=== PATIENT | male | born 1960 | race Caucasian/White ===

== ENCOUNTER 2017-08-14 15:22 | Emergency (ER) | payer OTHER ==
[2017-08-14 15:45] VITALS: BP 131/91
--- NOTE | 2017-08-14 16:13 | UC ---
Kar Payan Julia, scribed for Ryan Worthington MD on 08/14/17 at 1557 . Bite Injury/Animal HPI - HPI Summary HPI Summary: This patient is a 57 year old M presenting to [facility] with a chief complaint of a Bulls Eye rash to his right forearm. Patient noticed and removed a tick on . However he doesn't remember how long the tick has been there. Bulls eye rash still persists. Patient denies fever and chills. Etoh use daily. - History of Current Complaint Chief Complaint: UCSkin Stated Complaint: TICK BITE Time Seen by Provider: 08/14/17 15:49 Hx Obtained From: Patient Pain Intensity: 0 Onset/Duration: Other - unknown, first noticed 08/12/17 Type of Bite: Wild Animal - tick Aggravating Factor(s): Nothing Alleviating Factor(s): Nothing Associated Signs And Symptoms: Positive: Negative - Allergies/Home Medications Allergies/Adverse Reactions: Allergies Allergy/AdvReac Type Severity Reaction Status Date / Time iodine Allergy unk Verified 08/14/17 15:45 shellfish derived Allergy unk Verified 08/14/17 15:45 PMH/Surg Hx/FS Hx/Imm Hx Cancer History: Other Other Cancer History: testicular cancer - Surgical History Surgical History: Yes Surgery Procedure, Year, and Place: treatment for testicular CA - Family History Known Family History: Negative: Cardiac Disease - Social History Alcohol Use: Daily Substance Use Type: None Smoking Status (MU): Heavy Every Day Tobacco Smoker Type: Cigarettes Review of Systems Constitutional: Negative Skin: Rash All Other Systems Reviewed And Are Negative: Yes Physical Exam - Summary Physical Exam Summary: VITAL SIGNS: Reviewed. GENERAL: Patient is a well-developed and nourished male who is lying comfortable in the stretcher. Patient is not in any acute respiratory distress. HEAD AND FACE: Normocephalic EYES: PERRLA, EOMI x 2. EARS: Hearing grossly intact. MOUTH: Oropharynx within normal limits. NECK: Supple, trachea is midline, no adenopathy, no JVD, no carotid bruit. CHEST: Symmetric, no tenderness at palpation LUNGS: Clear to auscultation bilaterally. No wheezing or crackles. CVS: Regular rate and rhythm, S1 and S2 present, no murmurs or gallops appreciated. ABDOMEN: Soft, non-tender. Bowel sounds are normal. No abdominal abnormal pulsations. EXTREMITIES: Full ROM in all major joints, no edema, no cyanosis or clubbing. NEURO: Alert and oriented x 3. No acute neurological deficits. Speech is normal and follows commands. SKIN: Dry and warm, bulls eye rash to right forearm Triage Information Reviewed: Yes Vital Signs: Initial Vital Signs Temp 98.3 F 08/14/17 15:42 Pulse 93 08/14/17 15:42 Resp 18 08/14/17 15:42 BP 131/91 08/14/17 15:42 Pulse Ox 99 08/14/17 15:42 Vital Signs Reviewed: Yes Bite Injury Course/Dx - Course Course Of Treatment: Patient presents to the urgent care with a chief complaint of having a rash in the right peg. He reports that he removed the tick last Saturday however he doesn't know for how long the tick was present. Today he has a bulls eye rash with central clearing. Therefore decided to give the treatment for this patient. He has no other complaints. He was recommended to the ER if the symptoms worsen. CONCERNS WERE ADDRESSED AND HE HAS NO COMPLAINTS. - Differential Dx/Diagnosis Provider Diagnoses: Tick bite Discharge - Sign-Out/Discharge Documenting (check all that apply): Discharge/Admit/Transfer - Discharge Plan Condition: Stable Disposition: HOME Prescriptions: DOXYcycline CAP(*) [DOXYcycline 100MG CAP(*)] 100 mg PO BID #28 cap Patient Education Materials: Tick Bite (ED) Referrals: Jamel Garces MD [Primary Care Provider] - Additional Instructions: Take medications as instructed Increase your fluid intake Return to the UC if symptoms worsen - Billing Disposition and Condition Condition: STABLE Disposition: HOME The documentation as recorded by the Kar bose Julia accurately reflects the service I personally performed and the decisions made by , Ryan Worthington MD.
== END 2017-08-14 16:07 | disposition home or self-care (01) ==
LOC: UCEAST 15:22
DX: S50.861A Insect bite (nonvenomous) of right forearm, initial encounter (principal); W57.XXXA Bitten or stung by nonvenomous insect and other nonvenomous arthropods, initial encounter; Y93.9 Activity, unspecified; Y92.9 Unspecified place or not applicable; R21 Rash and other nonspecific skin eruption; Z85.47 Personal history of malignant neoplasm of testis; F17.210 Nicotine dependence, cigarettes, uncomplicated
CPT/HCPCS: 99212; G0463

== ENCOUNTER → 2018-09-19 08:16 | Day surgery (SDC) | payer OTHER ==
--- NOTE | 2018-09-17 17:59 | HP ---
CC: Dr. Garces; Dr. Isak Sauceda * ADMITTING HISTORY AND PHYSICAL: DATE OF ADMISSION: 09/19/18 ADMITTING DIAGNOSES: 1. Bilateral hydronephrosis. 2. Pelvic malignancy (questionable involvement of bladder by pelvic malignancy) . PLANNED PROCEDURE: Cystoscopy, bladder biopsies, bilateral retrograde and bilateral stent change. SURGEON: Noam Gaytan MD. HISTORY OF PRESENT ILLNESS: Wilman Harper is a 58-year-old gentleman who I saw recently after a gap of several years. He had been evaluated at [facility] for acute renal failure with a creatinine of 10.9 and was noted to have bilateral hydronephrosis. He was transferred to [facility] for urgent bilateral nephrostomy tube insertion and actually underwent insertion of bilateral nephroureteral stents and also then subsequently had a bladder biopsy a few days later, which showed poorly differentiated carcinoma thought to be not of bladder, prostate, or colon origin. He is now being brought in for cystoscopy, bladder biopsies and my plan also is to remove the previously placed nephroureteral stents and to place internal bilateral ureteral stents. PAST MEDICAL HISTORY: Significant for hypertension, gastroesophageal reflux, anxiety. 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 PAST SURGICAL HISTORY: Significant for the recent bladder biopsies and right orchiectomy in 1987. MEDICATIONS ON ADMISSION: 1. Allopurinol 300 mg a day. 2. Amlodipine 5 mg twice a day. 3. Pantoprazole 40 mg daily. 4. Klonopin 0.5 mg p.r.n. up to 3 times a day. ALLERGIES: INTRAVENOUSLY ADMINISTERED IODINE. FAMILY HISTORY: Negative for bladder or prostate cancer. SMOKING HISTORY: He has a 10 to 15 pack year smoking history. REVIEW OF SYSTEMS: He is otherwise in good health. There is no history of diabetes mellitus or any other major systemic illness. He denies any chest pain or shortness of breath. PHYSICAL EXAMINATION GENERAL: Reveals a pleasant middle aged gentleman. VITAL SIGNS: Blood pressure is 120/80, pulse 104 per minute and regular, temperature 97.8, oxygen saturation 98% on room air. LUNGS: Clear bilaterally. CARDIOVASCULAR: Regular rate and rhythm. S1, S2. ABDOMEN: Soft. Bilateral nephrostomy tubes are in place draining clear urine. IMPRESSION AND PLAN: I had a detailed discussion with Mr. Harper regarding the findings of possible metastatic malignancy to the bladder resulting in bilateral hydronephrosis. He will also need to be evaluated by Oncology, possibly with a PET scan to try determine the possible origin of this malignancy and certainly, lung cancer would have to be considered in possible primaries. I will also be talking with Dr. Sauceda to try and arrange the removal of the previously placed nephroureteral stents prior to my bilateral stent insertion. [id number]/[facility] #: [id number] MARIBEL
[~2018-09-19 08:16] MED LIST: Buffered Lidocaine 1% SYRIN* 1 ML/SYRINGE INTRADERM ONE; Fluorescein 10% INJ* 100 MG/ML AMP ONE; Furosemide IV* 10 MG/ML 2 ML VIAL (20 MG) ONE; HYDROmorphone INJ1* 1 MG/ML SYRINGE ONE; Iohexol 180 (CONTRAST) 10 ML SDV IV ONE; Lidocaine 2% PF * 5 ML VIAL ONE; Methylene Blue 0.5 %* 50 MG/10 ML AMP IV ONE; Midazolam* 1 MG/ML 2 ML VIAL (2 MG) ONE; Naloxone* 0.4 MG/ML 1 ML VIAL IV PRN; Ondansetron INJ* 2 MG/ML VIAL IV PRN; Ondansetron INJ* 2 MG/ML VIAL ONE; Oxybutynin TAB* 5 MG ONE; Propofol* 10 MG/ML 20 ML BTL ONE; cefTRIAXone(*) 2 GM ADDV.VIAL IVPB ONE; fentaNYL* 50 MCG/ML 2 ML VIAL (100 MCG VIAL) ONE; oxyCODONE/Acetamin 5/325 MG* TAB ONE
[2018-09-19] MEDS: Lactated Ringers 1000 ML Bag* 1,000 ML IV SCH ×2 (08:59→12:20)
[2018-09-19] MEDS: fentaNYL* 50 MCG/ML 2 ML VIAL (100 MCG VIAL) IV PRN ×5 (11:51→13:19)
[2018-09-19 13:20] VITALS: BP 131/84
[2018-09-19 15:11] LABS: BUN/Creatinine Ratio 8.3 (8-20); EGFR African American 55.6 (>60); EGFR Non-African American 45.9 (>60); Potassium 3.6 mmol/L (3.5-5.0)
--- NOTE | 2018-09-19 21:16 | OP ---
CC: Dr. Garces; Dr. Lorena Hairston; Dr. Noam Gaytan OPERATIVE REPORT: DATE OF OPERATION: 09/19/18 DATE OF : 60 SURGEON: Noam Gaytan MD ANESTHESIOLOGIST: Dr. Sevilla. ANESTHESIA: General. PRE-OP DIAGNOSES: 1. History of bilateral hydronephrosis and acute renal failure. 2. Bladder tumor. POST-OP DIAGNOSES: 1. History of bilateral hydronephrosis and acute renal failure. 2. Bladder tumor. OPERATIVE PROCEDURE: 1. Removal of previously placed bilateral nephroureteral stents. 2. Cystoscopy, bilateral retrograde pyelograms, bilateral ureteral balloon dilatation, and bilateral stent insertion. 3. Transurethral resection and fulguration of bladder lesions (5 to 6 cm aggregate). INDICATIONS: Wilman Harper is a 58-year-old gentleman who had initially been evaluated in the [facility] Emergency Room for a creatinine of almost 11. He was transferred to [facility] for ur gent bilateral nephrostomy tube insertion and underwent insertion of bilateral nephroureteral stents by the interventional radiology service there. He subsequently underwent cystoscopy and bladder biop sies, which revealed poorly differentiated carcinoma of unknown origin. He is now being brought in fo r internalization of the ureteral stents and further resection of the bladder lesion to try and deter mine the etiology of this malignancy. COMPLICATIONS: None. STENTS USED: 8.5-Hebrew 28-cm black silicone stents, right and left ureter. POSTOPERATIVE CONDITION: Stable. OPERATIVE FINDINGS: 1. Posterior bladder wall and floor of bladder involved by probable tumor invading into the bladder from an extrinsic source rather than a primary bladder tumor. 2. Evidence of occlusion of both right and left ureter in the distal ureter. DESCRIPTION OF PROCEDURE: After induction of general anesthesia, the patient was placed in dorsal li thotomy position. Sequential compression devices were in place and functioning. I initially attende d to removal of the bilateral nephroureteral stents; this was done by dividing the suture anchoring t he stent to the skin and then dividing the tube to also loosen up the retaining suture. Once this wa s done, the stent was removed easily and this procedure was done on both sides. Next, cystoscopy was performed. The urethra was normal. The prostate was mild to moderately enlarge d. The bladder was examined. There was extensive involvement of the entire posterior bladder wall a nd the floor of the bladder with fairly firm gritty tumor, which did not have the appearance of prima ry bladder tumor. The right and left ureteral orifices were identified and there was considerable in flammatory response surrounding. The retrograde pyelogram initially was performed on the right side and balloon dilatation of the right distal ureter was successfully carried out under fluoroscopy. An 8.5-Hebrew 28-cm silicone stent was placed in the right ureter and a similar procedure was carried o ut on the left side and after balloon dilatation, an 8.5-Hebrew 28-cm silicone stent was placed on th e left side. Next, attention was directed to the resection of bladder tumor initially using a biopsy forceps and t hen using a resectoscope, a significant portion of the visualized tumor was resected and sent for his topathology. Hemostasis appeared satisfactory at the end of the procedure and a Jasmine catheter was p laced for temporary bladder drainage. The patient tolerated the procedure satisfactorily and was tra nsferred back to recovery area in stable condition. The next step will be for him to see Dr. Sidney ghosh in Oncology and possibly undergo further imaging including a PET scan to see whether this bladder t umor is metastatic from a primary site elsewhere such as lungs and I will be forwarding the results o f the histopathology to Dr. Hairston when it is available. [id number]/[facility] #: [id number]
== END | disposition home or self-care (01) ==
LOC: OR 08:16
PROVIDERS: ATTEND Urology
DX: N13.5 Crossing vessel and stricture of ureter without hydronephrosis (principal); C67.8 Malignant neoplasm of overlapping sites of bladder; I10 Essential (primary) hypertension; K21.9 Gastro-esophageal reflux disease without esophagitis; F41.9 Anxiety disorder, unspecified; Z85.47 Personal history of malignant neoplasm of testis; Z72.0 Tobacco use
CPT/HCPCS: 36415; 74420; 80048; 88305; 88341; 88342; 88360; A9270-GY; C1876; J0696; J1170; J1940; J2250; J2405; J2704; J3010

== ENCOUNTER 2019-06-30 10:52 | Inpatient (IN) | payer OTHER, MEDICAID ==
[~2019-06-30 10:52] MED LIST changes: +ATEZOLIZUMAB IV SCH; -Buffered Lidocaine 1% SYRIN* 1 ML/SYRINGE INTRADERM ONE; -Fluorescein 10% INJ* 100 MG/ML AMP ONE; -Furosemide IV* 10 MG/ML 2 ML VIAL (20 MG) ONE; -HYDROmorphone INJ1* 1 MG/ML SYRINGE ONE; -Iohexol 180 (CONTRAST) 10 ML SDV IV ONE; -Lidocaine 2% PF * 5 ML VIAL ONE; -Methylene Blue 0.5 %* 50 MG/10 ML AMP IV ONE; -Midazolam* 1 MG/ML 2 ML VIAL (2 MG) ONE; +NS 0.9% IV SCH; -Naloxone* 0.4 MG/ML 1 ML VIAL IV PRN; -Ondansetron INJ* 2 MG/ML VIAL IV PRN; -Ondansetron INJ* 2 MG/ML VIAL ONE; -Oxybutynin TAB* 5 MG ONE; -Propofol* 10 MG/ML 20 ML BTL ONE; -cefTRIAXone(*) 2 GM ADDV.VIAL IVPB ONE; -fentaNYL* 50 MCG/ML 2 ML VIAL (100 MCG VIAL) ONE; -oxyCODONE/Acetamin 5/325 MG* TAB ONE
[2019-06-30 11:19] LABS: ABS Basophils 0.1 10^3/ul (0-0.2); ABS Eosinophils 0.1 10^3/ul (0-0.6); ABS Lymphocytes 1.1 10^3/ul (1.0-4.8); ABS Monocytes 1.3 10^3/ul (0-0.8); ABS Neutrophils 7.4 10^3/ul (1.5-7.7); Eosinophil % 1.3 %; Hematocrit 37 % (42-52); Lymphocyte % 10.7 %; Mean Corpuscular HGB Conc 35 g/dL (31-36); Mean Corpuscular Hemoglobin 32 pg (27-31); Mean Corpuscular Volume 91 fL (80-94); Mean Platelet Volume 8.3 fL (7.4-10.4); Platelet Count 421 10^3/uL (150-450); Red Blood Count 4.11 10^6 /uL (4.18-5.48); Red Cell Distribution Width 16 % (10-15)
[2019-06-30 11:36] LABS: Albumin 4.2 g/dL (3.2-5.2); Albumin/Globulin Ratio 0.9 (1-3); BUN/Creatinine Ratio 22.3 (8-20); Calcium 10.5 mg/dL (8.6-10.3); EGFR African American 36.5 (>60); EGFR Non-African American 30.2 (>60); Globulin 4.7 g/dL (2-4); Potassium 3.7 mmol/L (3.5-5.0); Total Bilirubin 0.7 mg/dL (0.2-1.0); Total Protein 8.9 g/dL (6.4-8.9)
[2019-06-30] MEDS ORDERED: Ondansetron INJ* 2 MG/ML VIAL ONE (13:26)
[2019-06-30] MEDS ORDERED: Morphine INJ* 2 MG/ML 1 ML SYRINGE (TWO MG - NEW SYRINGE VERSION) ONE (13:27)
[2019-06-30] MEDS ORDERED: Sodium Phosphate ADULT ENEMA* 118 ml bottle PR ONE (17:28)
[2019-06-30] MEDS ORDERED: Lorazepam PYXIS KEY PRN (17:29)
[2019-06-30] MEDS: NS 0.9% 1000 ML** 1,000 ML IV SCH (17:42)
--- NOTE | 2019-06-30 17:46 | PN ---
Progress Note - Progress Note Date of Service: 06/30/19 SOAP: Update to H&P: CT reviewed with radiology who agrees it appears c/w a gastric outlet obstruction v proximal small bowel obstruction. Pt will be NPO overnight with plan for EGD tomorrow. Spoke with GI compressor station engineer, Dr Mckeon, who agrees with need for EGD. Recommends NG tube placement if he has additional emesis. He will be evaluated by Dr Mejias in the morning.
[2019-06-30] MEDS ORDERED: Enoxaparin(*) 30 MG/0.3 ML SYR SUBCUT SCH (18:00)
[2019-06-30] MEDS: Ondansetron INJ* 2 MG/ML VIAL IV PRN (19:51)
[2019-06-30] MEDS: Morphine INJ* 2 MG/ML 1 ML SYRINGE (TWO MG - NEW SYRINGE VERSION) IV PRN (19:52)
[2019-07-01] MEDS: Morphine INJ* 2 MG/ML 1 ML SYRINGE (TWO MG - NEW SYRINGE VERSION) IV PRN (01:12)
[2019-07-01] MEDS: Ondansetron INJ* 2 MG/ML VIAL IV PRN ×2 (01:12→21:07)
[2019-07-01] MEDS: NS 0.9% 1000 ML** 1,000 ML IV SCH (03:35)
[2019-07-01 05:58] LABS: ABS Eosinophils 0.2 10^3/ul (0-0.6); ABS Lymphocytes 1.2 10^3/ul (1.0-4.8); ABS Monocytes 0.9 10^3/ul (0-0.8); Eosinophil % 2.1 %; Hematocrit 30 % (42-52); Hemoglobin 10.6 g/dL (14.0-18.0); Lymphocyte % 16.2 %; Mean Corpuscular HGB Conc 35 g/dL (31-36); Mean Corpuscular Hemoglobin 32 pg (27-31); Mean Corpuscular Volume 90 fL (80-94); Mean Platelet Volume 8.2 fL (7.4-10.4); Platelet Count 271 10^3/uL (150-450); Red Blood Count 3.35 10^6 /uL (4.18-5.48); Red Cell Distribution Width 16 % (10-15); White Blood Count 7.2 10^3/uL (3.5-10.8)
[2019-07-01 06:22] LABS: Albumin 3.6 g/dL (3.2-5.2); BUN/Creatinine Ratio 24.3 (8-20); EGFR African American 46.7 (>60); EGFR Non-African American 38.6 (>60); Globulin 3.6 g/dL (2-4); Potassium 3.4 mmol/L (3.5-5.0); Total Bilirubin 0.5 mg/dL (0.2-1.0); Total Protein 7.2 g/dL (6.4-8.9)
--- NOTE | 2019-07-01 10:30 | PN ---
Progress Note - Progress Note Date of Service: 07/01/19 SOAP: Subjective: just started having some bloody drainage from his NGT. stomach feels MUCH better after tube placed. awaiting endoscopy today. Objective: Vital Signs Temp Pulse Resp BP Pulse Ox 97.9 F 96 16 122/77 98 07/01/19 07:29 07/01/19 07:29 07/01/19 07:50 07/01/19 07:29 07/01/19 07:29 perr eomi op moist NGT in place with bloody drainage soft stomach, min ttp, urostomy in place no le edema left neck subcutaneous nodules (3) A+O x 3, nonfocal neurological exam Laboratory Results - last 24 hr 06/30/19 06/30/19 07/01/19 11:10 11:10 05:50 WBC 10.0 7.2 RBC 4.11 L 3.35 L Hgb 13.0 L 10.6 L Hct 37 L 30 L MCV 91 90 MCH 32 H 32 H MCHC 35 35 RDW 16 H 16 H Plt Count 421 271 MPV 8.3 8.2 Neut % (Auto) 74.5 69.4 Lymph % (Auto) 10.7 16.2 [place] % (Auto) 13.0 11.8 Eos % (Auto) 1.3 2.1 Baso % (Auto) 0.5 0.5 Absolute Neuts (auto) 7.4 5.0 Absolute Lymphs (auto) 1.1 1.2 Absolute Monos (auto) 1.3 H 0.9 H Absolute Eos (auto) 0.1 0.2 Absolute Basos (auto) 0.1 0.0 Absolute Nucleated RBC 0.0 0.0 Nucleated RBC % 0.0 0.0 Sodium 131 L Potassium 3.7 Chloride 86 L Carbon Dioxide 32 Anion Gap 13 H BUN 50 H Creatinine 2.24 H Est GFR ( Amer) 36.5 Est GFR (Non-Af Amer) 30.2 BUN/Creatinine Ratio 22.3 H Glucose 160 H Calcium 10.5 H Magnesium Total Bilirubin 0.70 AST 25 ALT 21 Alkaline Phosphatase 215 H Total Protein 8.9 Albumin 4.2 Globulin 4.7 H Albumin/Globulin Ratio 0.9 L 07/01/19 05:50 WBC RBC Hgb Hct MCV MCH MCHC RDW Plt Count MPV Neut % (Auto) Lymph % (Auto) [place] % (Auto) Eos % (Auto) Baso % (Auto) Absolute Neuts (auto) Absolute Lymphs (auto) Absolute Monos (auto) Absolute Eos (auto) Absolute Basos (auto) Absolute Nucleated RBC Nucleated RBC % Sodium 138 Potassium 3.4 L Chloride 95 L Carbon Dioxide 32 Anion Gap 11 BUN 44 H Creatinine 1.81 H Est GFR ( Amer) 46.7 Est GFR (Non-Af Amer) 38.6 BUN/Creatinine Ratio 24.3 H Glucose 82 Calcium 9.0 Magnesium 2.1 Total Bilirubin 0.50 AST 18 ALT 15 Alkaline Phosphatase 162 H Total Protein 7.2 Albumin 3.6 Globulin 3.6 Albumin/Globulin Ratio 1.0 Enoxaparin Sodium (Lovenox(*)) 30 mg SUBCUT Q24H CHAYITO Last Admin: 06/30/19 18:23 Dose: 30 mg Potassium Chloride/Sodium Chloride (Ns 0.45% Kcl 20 Meq 1000 Ml*) 1,000 mls @ 100 mls/hr IV PER RATE CHAYITO Lorazepam (Ativan Inj*) 0.5 mg IV PUSH Q4H PRN PRN Reason: ANXIETY Miscellaneous (Ativan Pyxis Booth) 1 ea N/A .ATIVAN IV BOOTH PRN PRN Reason: PYXIS BOOTH Morphine Sulfate (Morphine Inj (Syringe))*) 2 mg IV Q4H PRN PRN Reason: PAIN - MODERATE Last Admin: 07/01/19 01:12 Dose: 2 mg Ondansetron HCl (Zofran Inj*) 4 mg IV Q4H PRN PRN Reason: NAUSEA/VOMITING Last Admin: 07/01/19 01:12 Dose: 4 m Assessment: 59 yo M w metastatic bladder CA to start immunotherapy this week now admitted with gastric outlet obstruction of unclear etiology but concerning for malignant obstruction. Plan: -endoscopy today -NPO -replete electrolytes -hold DVT prophylaxis with bleeding full code
[2019-07-01 10:52] LABS: Magnesium 2.1 mg/dL (1.9-2.7)
[2019-07-01] MEDS: NS 0.45% KCl 20 Meq 1000 ML* 1,000 ML IV SCH ×2 (11:22→23:29)
[2019-07-01] MEDS ORDERED: fentaNYL* 50 MCG/ML 2 ML VIAL (100 MCG VIAL) ONE (12:31)
[2019-07-01] MEDS ORDERED: Midazolam* 1 MG/ML 10 ML VIAL (10 MG) ONE (12:31)
--- NOTE | 2019-07-01 15:08 | PRO ---
CC: Dr. Lorena Camilo * DATE OF PROCEDURE: 07/01/19 - ROOM #333 PROCEDURE: EGD. REFERRING PHYSICIAN: Dr. Lorena Camilo. INDICATION: Concern for gastric outlet obstruction given CT imaging. Nausea/ vomiting. History of bladder cancer with metastatic disease to peritoneum. MEDICATIONS GIVEN: Midazolam 12 mg IV, Fentanyl 100 mcg IV. DESCRIPTION OF PROCEDURE: Full disclosure of risks was reviewed with the patient as detailed on the consent form. The patient was placed in the left lateral decubitus position and monitored with continuous pulse oximetry, capnography, interval blood pressure monitoring, and direct observation. A bite -block was placed between the patient's teeth. An adult gastroscope was then inserted into the patient's mouth and advanced down the esophagus into the stomach and into the distal duodenum. Findings and interventions are described below. FINDINGS: Esophagus was a tubular structure without rings or strictures. There was severe (LA grade D) esophagitis with several small clean-based ulcers in the distal esophagus. Scope was advanced into the stomach. Stomach was examined in the forward and retroflexed views. In the gastric body, there was a small amount of bilious green liquid with some food debris. NG tube was removed as it became displaced during the procedure. There was a small area of erosion in the mid gastric body likely related to the irritation from the tip of the NG tube. In the gastric antrum, the pylorus was widely patent. There were no ulcers or erosions. Biopsy was obtained from the antrum for histologic evaluation. Scope was able to advance into the duodenum to at least the third portion. There was a dimpling seen in the proximal duodenum suspicious for small ulcer vs diverticulum. Mucosa of duodenum was otherwise normal. No mass noted. No narrowing noted. Biopsies were obtained from the proximal duodenum. Scope was then drawn from the patient. The patient tolerated the procedure well and was recovered in the GI recovery area. IMPRESSION: 1. Complete upper endoscopy to distal duodenum. 2. Severe esophagitis. 3. Mild amount of retained liquid and food debris in stomach. 4. No evidence of gastric outlet obstruction. 5. Possible small duodenal ulcer vs diverticulum in the proximal duodenum. FOLLOWUP: 1. Start high-dose PPI twice daily. Would switch to Nexium 40 twice daily or omeprazole 40 mg twice daily as the patient has been on pantoprazole once daily. 2. Await pathology. 3. Consider trial of clear diet. 4. If recurrent nausea or vomiting, then I would recommend upper GI series. Thank you very much for this consult. [id number]/[facility] #: [id number] [facility]
--- NOTE | 2019-07-01 15:32 | CONS ---
CC: Dr. Camilo * GASTROENTEROLOGY CONSULT REPORT: DATE OF CONSULT: 07/01/19 REQUESTING PROVIDER: Dr. Camilo. INDICATION: Concern for gastric outlet obstruction. HISTORY OF PRESENT ILLNESS: Mr. Harper is a 59-year-old gentleman with a history of testicular cancer, GERD, and metastatic adenocarcinoma in the bladder status- post surgery with ureteroileal conduit and chemotherapy, who is admitted with nausea, vomiting, and imaging concerning for gastric outlet obstruction. Mr. Harper is followed in the Heme/Onc Clinic. Please see the H and P from to detail his oncological history. Briefly, it sounds as if he was diagnosed with a bladder mass in the summer of 2018. He underwent an EGD in September that demonstrated a small hyperplastic antral polyp. No source of adenocarcinoma noted. Colonoscopy in October demonstrated multiple precancerous polyps. No malignancy noted. The patient underwent surgery in November 2018 with ureteroileal conduit. There was diffuse peritoneal spread noted. He has completed 12 cycles of chemotherapy. Last chemotherapy was 3 weeks ago. He has noticed that his reflux has worsened quite a bit with chemotherapy. He has been using Protonix once daily, although he occasionally uses 2 tablets. He has noticed mild solid food dysphagia over the past few weeks. Around 3 weeks ago, he had an episode of vomiting. He had similar episodes once a week for the following 2 weeks. Late last week and through the weekend, he developed recurrent nausea and multiple episodes of vomiting. His oral intake has been quite low and largely consists of liquids due to the symptoms. He reports bloating and abdominal discomfort. He has been having small regular bowel movements, which has been more constipated. He presented for evaluation and was admitted through the Heme/Onc Service. A CT scan on 06/30/19 demonstrated markedly dilated stomach and gastric antrum raising concern for gastric outlet obstruction. The horizontal portion of the duodenum appeared partially collapsed. An NG tube was placed with improvement in his abdominal discomfort. GI consulted. PAST MEDICAL HISTORY: 1. Metastatic bladder cancer, status post surgery and chemotherapy. 2. Mild COPD. 3. Depression and anxiety. 4. GERD. 5. Hypertension. 6. Hyperlipidemia. 7. Testicular cancer, status post resection and radiation therapy. PAST SURGICAL HISTORY: 1. Bladder surgery as above. 2. A testicular cancer surgery as above. HOME MEDICATIONS: 1. Clonazepam 0.5 mg t.i.d. p.r.n. 2. Colace p.r.n. 3. EpiPen p.r.n. 4. Imodium A-D p.r.n. 5. Lunesta 3 mg daily p.r.n. 6. Norvasc 5 mg daily. 7. Oxycodone 5 mg twice daily as needed. 8. Protonix 40 mg daily. 9. Senna p.r.n. ALLERGIES: IODINE and SHELLFISH. FAMILY HISTORY: Brother from colon cancer diagnosed at age 58. Diabetes in family. SOCIAL HISTORY: He is a pack-a-day smoker for 15 years, although he has not smoked in the past week. History of heavy alcohol use in the past, although now he drinks rarely. On disability. 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 REVIEW OF SYSTEMS: A 10-point review of systems was negative except as mentioned above. PHYSICAL EXAM: Vital Signs: Afebrile, heart rate in the 90s, blood pressure 120s/70s, 98% on room air. General: Chronically ill-appearing gentleman. No acute distress. HEENT: NG tube clamped. Cardiovascular: Regular rate and rhythm. Pulmonary: Breathing comfortably. Intermittent wet sounding cough. Abdomen: Soft, nontender, nondistended. Urostomy noted with yellow urine in bag. Extremities: No significant edema. Skin: No jaundice. DIAGNOSTIC STUDIES/LAB DATA: Labs: White count 7.2, hemoglobin 13 on admission and down to 10.6 with hematocrit of 37 to 30, platelet count 271. Sodium 138, potassium 3.4, BUN 44, creatinine 1.81 down from 2.24 on admission. AST and ALT normal. Alk phos 215 on arrival down to 162. Bilirubin 0.5. Imaging: CT abdomen and pelvis as detailed above with dilated stomach. IMPRESSION AND RECOMMENDATIONS: Mr. Harper is a 59-year-old gentleman with metastatic bladder cancer with recent completion of chemotherapy, who is admitted with nausea, vomiting, and imaging concerning for gastric outlet obstruction. Mr. Harper reports worsening reflux and mild dysphagia recently. He has also had increase in nausea and vomiting over the last few weeks to the point that he is now unable to tolerate much p.o. intake. Imaging is concerning for moderately dilated stomach with collapsed duodenum. Findings suspicious for gastric outlet obstruction. Interestingly, the patient did have an EGD in September 2018 without any lesions making a mass less likely. Infiltrative disease or extrinsic compression considered given his oncologic history. Peptic ulcer disease considered. We will plan for urgent endoscopy today to assess for acute findings. Please keep n.p.o. Thank you very much for this consult. [id number]/[facility] #: [id number] MTD[facility]ónica
[2019-07-01] MEDS ORDERED: PROCHLORPERAZINE INJ 5 MG/ML 2 ML VIAL IV PRN (19:07)
[2019-07-01] MEDS: Pantoprazole IV* 40 MG IV SCH (21:02)
[2019-07-01] MEDS ORDERED: Ondansetron INJ* 2 MG/ML VIAL IV ONE (22:50)
[2019-07-01] MEDS ORDERED: Scopolamine 1.5 mg* PATCH TRANSDERM ONE (23:30)
[2019-07-02 05:48] LABS: ABS Eosinophils 0.1 10^3/ul (0-0.6); ABS Lymphocytes 0.5 10^3/ul (1.0-4.8); ABS Monocytes 0.7 10^3/ul (0-0.8); ABS Neutrophils 11.8 10^3/ul (1.5-7.7); Eosinophil % 0.9 %; Hematocrit 31 % (42-52); Hemoglobin 10.7 g/dL (14.0-18.0); Lymphocyte % 3.8 %; Mean Corpuscular HGB Conc 35 g/dL (31-36); Mean Corpuscular Hemoglobin 32 pg (27-31); Mean Corpuscular Volume 91 fL (80-94); Mean Platelet Volume 8.8 fL (7.4-10.4); Platelet Count 292 10^3/uL (150-450); Red Blood Count 3.41 10^6 /uL (4.18-5.48); Red Cell Distribution Width 16 % (10-15); White Blood Count 13.2 10^3/uL (3.5-10.8)
[2019-07-02 06:03] LABS: BUN/Creatinine Ratio 20.9 (8-20); Calcium 9.3 mg/dL (8.6-10.3); EGFR African American 54.6 (>60); EGFR Non-African American 45.1 (>60); Potassium 3.4 mmol/L (3.5-5.0)
[2019-07-02] MEDS: Ondansetron INJ* 2 MG/ML VIAL IV PRN ×2 (09:06→17:57)
[2019-07-02] MEDS: Morphine INJ* 2 MG/ML 1 ML SYRINGE (TWO MG - NEW SYRINGE VERSION) IV PRN ×4 (09:06→23:04)
[2019-07-02] MEDS: Pantoprazole IV* 40 MG IV SCH ×2 (09:08→20:36)
[2019-07-02] MEDS: NS 0.9% w/ 40 Meq KCL 1000 ML* 1,000 ML IV SCH ×2 (10:12→23:29)
--- NOTE | 2019-07-02 10:34 | PN ---
Progress Note - Progress Note Date of Service: 07/02/19 SOAP: Subjective: []Still has a fair amount nausea. Main complaint is reflux and 'spasms' that occur after drinking anything. Feels like he gets significant pain at the LLQ with any eating as well. Zofran helping a little. Urostomy output a little dark. Hasn't had a BM since admission, but is passing gas. Frustrated that he doesn't feel better. Medications: Potassium Chloride/Sodium Chloride (Ns 0.9% W/ 40 Meq Kcl 1000 Ml*) 1,000 mls @ 75 mls/hr IV PER RATE [facility] Last Admin: 07/02/19 10:12 Dose: 75 mls/hr Lorazepam (Ativan Inj*) 0.5 mg IV PUSH Q4H PRN PRN Reason: ANXIETY Miscellaneous (Ativan Pyxis Booth) 1 ea N/A .ATIVAN IV BOOTH PRN PRN Reason: PYXIS BOOTH Morphine Sulfate (Morphine Inj (Syringe))*) 2 mg IV Q4H PRN PRN Reason: PAIN - MODERATE Last Admin: 07/02/19 09:06 Dose: 2 mg Ondansetron HCl (Zofran Inj*) 8 mg IV Q8H PRN PRN Reason: NAUSEA Last Admin: 07/02/19 09:06 Dose: 8 mg Pantoprazole Sodium (Protonix Iv*) 40 mg IV BID [facility] Last Admin: 07/02/19 09:08 Dose: 40 mg Pharmacy Profile Note (Scopolamine Patch Remove*) 1 note PATCH OFF Q72H ONE Stop: 07/04/19 23:31 Objective: [] Vital Signs Temp Pulse Resp BP Pulse Ox 98.9 F 115 18 138/92 95 07/02/19 07:43 07/02/19 07:43 07/02/19 10:05 07/02/19 07:43 07/02/19 07:43 A&Ox3, EOMI, neuro grossly non-focal HRR, S1S2 LS clear Hypoactive BS Urostomy RLQ with dark yellow output Laboratory Results - last 24 hr 07/01/19 07/02/19 07/02/19 05:50 05:20 05:20 WBC 13.2 H RBC 3.41 L Hgb 10.7 L Hct 31 L MCV 91 MCH 32 H MCHC 35 RDW 16 H Plt Count 292 MPV 8.8 Neut % (Auto) 89.7 Lymph % (Auto) 3.8 Bremer % (Auto) 5.5 Eos % (Auto) 0.9 Baso % (Auto) 0.1 Absolute Neuts (auto) 11.8 H Absolute Lymphs (auto) 0.5 L Absolute Monos (auto) 0.7 Absolute Eos (auto) 0.1 Absolute Basos (auto) 0.0 Absolute Nucleated RBC 0.0 Nucleated RBC % 0.0 Sodium 138 Potassium 3.4 L Chloride 95 L Carbon Dioxide 33 H Anion Gap 10 BUN 33 H Creatinine 1.58 H Est GFR ( Amer) 54.6 Est GFR (Non-Af Amer) 45.1 BUN/Creatinine Ratio 20.9 H Glucose 112 H Calcium 9.3 Magnesium 2.1 Assessment: []59 yo male with metastatic adenocarcinoma felt mostly likely upper GI primary s/p 12 cycles of mFOLFOX with plan to proceed with Atezoluzimab, however presented to the office on 06/30/19 with severe N/V and abd. pain and was found to have ARF 2/2 hypovolemia and imaging concerning for gastric outlet obstruction. Work-up yesterday with EGD revealing marked esophagitis, gastritis , and a small duodenal ulcer. He has been on high dose PPI with minimal improvement today. Case discussed with GI and will attempt cont.'d conservative management, however if not improvement in the next 48 hours consider small bowel follow-through GI study. Plan: []1. Gastritis - cont. PPI IV BID, home on Nexium BID - trial Reglan to assist with motility - consider levosin for spasms 2. ARF: improving - cont. IV fluids Dispo: requires cont.'d inpt. care, home when PO intake improved
[2019-07-02] MEDS: Metoclopramide LIQ* 10 MG/10 ML ORAL.SOLN PO SCH ×2 (11:03→17:12)
[2019-07-02] MEDS: Hyoscyamine TAB* 0.125 MG PO PRN ×2 (11:04→20:35)
[2019-07-02] MEDS: LORazepam INJ* 2 MG/ML 1 ML VIAL IV PUSH PRN (23:04)
[2019-07-03] MEDS: Metoclopramide LIQ* 10 MG/10 ML ORAL.SOLN PO SCH ×3 (07:27→16:35)
[2019-07-03] MEDS: Pantoprazole IV* 40 MG IV SCH ×2 (08:39→22:17)
[2019-07-03] MEDS: KCL 10 MEQ/50 ML IVPREMIX* 10 MEQ/50 ML BAG IV SCH ×3 (09:10→16:28)
--- NOTE | 2019-07-03 09:31 | PN ---
Progress Note - Progress Note Date of Service: 07/03/19 SOAP: Subjective: [Unfortunately he did not do well overnight. Several episodes of large volume emesis with distention of his abdomen. NGT was replaced early this morning and he reported immediate relief in symptoms. NGT put out nearly 2L. He received 2 doses of reglan earlier in the day yesterday. At the time of evaluating him he is asx, denies nausea or abd pain. No BM in ~2d. Noted tachycardia with HRs 115-120bpm. EKG yesterday shows sinus tachycardia. Patient reports that he has not been drinking regularly in several months, no recent binges. Objective: [ Vital Signs: Temp Pulse Resp BP Pulse Ox 99.1 F 120 16 125/74 90 07/03/19 07:37 07/03/19 07:37 07/03/19 07:37 07/03/19 07:37 07/03/19 07:37 Hyoscyamine (Anaspaz Tab*) 0.125 mg PO Q4H PRN PRN Reason: SPASMS Last Admin: 07/02/19 20:35 Dose: 0.125 mg Potassium Chloride/Sodium Chloride (Ns 0.9% W/ 40 Meq Kcl 1000 Ml*) 1,000 mls @ 75 mls/hr IV PER RATE [facility] Last Admin: 07/02/19 23:29 Dose: 75 mls/hr Potassium Chloride (Potassium Chloride 10 Meq/50 Ml Ivpremix*) 10 meq in 50 mls @ 50 mls/hr IV Q1H [facility] Stop: 07/03/19 11:59 Last Admin: 07/03/19 09:10 Dose: 25 mls/hr Lorazepam (Ativan Inj*) 0.5 mg IV PUSH Q4H PRN PRN Reason: ANXIETY Last Admin: 07/02/19 23:04 Dose: 0.5 mg Metoclopramide HCl (Reglan Liq*) 10 mg PO AC [facility] Last Admin: 07/03/19 07:27 Dose: Not Given Miscellaneous (Ativan Pyxis Booth) 1 ea N/A .ATIVAN IV BOOTH PRN PRN Reason: PYXIS BOOTH Morphine Sulfate (Morphine Inj (Syringe))*) 2 mg IV Q4H PRN PRN Reason: PAIN - MODERATE Last Admin: 07/02/19 23:04 Dose: 2 mg Ondansetron HCl (Zofran Inj*) 8 mg IV Q8H PRN PRN Reason: NAUSEA Last Admin: 07/02/19 17:57 Dose: 8 mg Pantoprazole Sodium (Protonix Iv*) 40 mg IV BID [facility] Last Admin: 07/03/19 08:39 Dose: 40 mg Pharmacy Profile Note (Scopolamine Patch Remove*) 1 note PATCH OFF Q72H ONE Stop: 07/04/19 23:31 Laboratory Results - last 24 hr 07/02/19 05:20 Sodium 138 Potassium 3.4 L Chloride 95 L Carbon Dioxide 33 H Anion Gap 10 BUN 33 H Creatinine 1.58 H Est GFR ( Amer) 54.6 Est GFR (Non-Af Amer) 45.1 BUN/Creatinine Ratio 20.9 H Glucose 112 H Calcium 9.3 Magnesium 2.0 Exam: Gen: mildly ill appearing 59 yo male in NAD. HEENT: mildly dry MM, NGT in place CV: RRR, tachycardic, no m/r/g Resp: CTA, no w/c/r Abd: soft, no BS appreciated, non-distended Ext: no edema [Assessment: []59 yo male with metastatic adenocarcinoma felt mostly likely upper GI primary s/p 12 cycles of mFOLFOX with plan to proceed with Atezoluzimab, however presented to the office on 06/30/19 with severe N/V and abd. pain and was found to have ARF 2/2 hypovolemia and imaging concerning for gastric outlet obstruction. Work-up has included an EGD which revealed marked esophagitis, gastritis, and a small duodenal ulcer. He has been on high dose PPI and started on Reglan. Unfortunately he started vomiting again last night, relieved with replacing NGT. Will plan upper GI series with SB follow through if he is able to tolerate the contrast without vomiting this morning. Plan: []1. Gastric outlet obstruction - no mechanical obstruction on EGD - cont. PPI IV BID - upper GI series/small bowel follow through today to eval for gastroparesis v more distal obstruction 2. SUNG: improving - cont. IV fluids 3. FEN: - NPO for now - replete K IV Dispo: requires cont.'d inpt. care, dc plan is unclear at this time
[2019-07-03] MEDS: NS 0.9% w/ 40 Meq KCL 1000 ML* 1,000 ML IV SCH (13:22)
[2019-07-03] MEDS ORDERED: KCL 10 MEQ/50 ML IVPREMIX* 10 MEQ/50 ML BAG ONE (16:23)
[2019-07-03] MEDS: Morphine INJ* 2 MG/ML 1 ML SYRINGE (TWO MG - NEW SYRINGE VERSION) IV PRN (16:45)
[2019-07-03] MEDS: LORazepam INJ* 2 MG/ML 1 ML VIAL IV PUSH PRN (23:24)
[2019-07-04] MEDS: Morphine INJ* 2 MG/ML 1 ML SYRINGE (TWO MG - NEW SYRINGE VERSION) IV PRN ×2 (00:18→16:06)
[2019-07-04] MEDS: NS 0.9% w/ 40 Meq KCL 1000 ML* 1,000 ML IV SCH ×2 (02:10→16:04)
[2019-07-04 05:56] LABS: Hematocrit 28 % (42-52); Hemoglobin 9.5 g/dL (14.0-18.0); Mean Corpuscular HGB Conc 34 g/dL (31-36); Mean Corpuscular Hemoglobin 31 pg (27-31); Mean Corpuscular Volume 91 fL (80-94); Mean Platelet Volume 8.7 fL (7.4-10.4); Platelet Count 257 10^3/uL (150-450); Red Blood Count 3.04 10^6 /uL (4.18-5.48); Red Cell Distribution Width 16 % (10-15); White Blood Count 14.5 10^3/uL (3.5-10.8)
[2019-07-04 06:13] LABS: BUN/Creatinine Ratio 20.8 (8-20); Calcium 9.3 mg/dL (8.6-10.3); EGFR African American 60.8 (>60); EGFR Non-African American 50.2 (>60); Potassium 4.2 mmol/L (3.5-5.0)
[2019-07-04 06:57] LABS: ABS Eosinophils 0.4 10^3/ul (0-0.6); ABS Lymphocytes 0.6 10^3/ul (1.0-4.8); ABS Monocytes 1.1 10^3/ul (0-0.8); ABS Neutrophils 12.3 10^3/ul (1.5-7.7); Eosinophil % 2.7 %; Lymphocyte % 4.2 %
[2019-07-04] MEDS: Pantoprazole IV* 40 MG IV SCH ×2 (08:10→20:58)
[2019-07-04] MEDS: Metoclopramide LIQ* 10 MG/10 ML ORAL.SOLN PO SCH ×3 (08:45→16:05)
--- NOTE | 2019-07-04 09:22 | PN ---
Progress Note - Progress Note Date of Service: 07/04/19 SOAP: Subjective: []NGT out and has been drinking clear liquids. Vomited once overnight. Took Reglan and has forcefull BM, hesitant to take again but he did feel it helped. Has distension today. No fever or chills. He would like to go home if we are not doing anything different in hospital then he can do at home. Hyoscyamine (Anaspaz Tab*) 0.125 mg PO Q4H PRN PRN Reason: SPASMS Last Admin: 07/02/19 20:35 Dose: 0.125 mg Potassium Chloride/Sodium Chloride (Ns 0.9% W/ 40 Meq Kcl 1000 Ml*) 1,000 mls @ 75 mls/hr IV PER RATE [facility] Last Admin: 07/04/19 02:10 Dose: 75 mls/hr Lorazepam (Ativan Inj*) 0.5 mg IV PUSH Q4H PRN PRN Reason: ANXIETY Last Admin: 07/03/19 23:24 Dose: 0.5 mg Metoclopramide HCl (Reglan Liq*) 10 mg PO AC [facility] Last Admin: 07/04/19 08:45 Dose: 10 mg Miscellaneous (Ativan Pyxis Booth) 1 ea N/A .ATIVAN IV BOOTH PRN PRN Reason: PYXIS BOOTH Morphine Sulfate (Morphine Inj (Syringe))*) 2 mg IV Q4H PRN PRN Reason: PAIN - MODERATE Last Admin: 07/04/19 00:18 Dose: 2 mg Ondansetron HCl (Zofran Inj*) 8 mg IV Q8H PRN PRN Reason: NAUSEA Last Admin: 07/02/19 17:57 Dose: 8 mg Pantoprazole Sodium (Protonix Iv*) 40 mg IV BID [facility] Last Admin: 07/04/19 08:10 Dose: 40 mg Pharmacy Profile Note (Scopolamine Patch Remove*) 1 note PATCH OFF Q72H ONE Stop: 07/04/19 23:31 Objective: [] Vital Signs Temp Pulse Resp BP Pulse Ox 98.6 F 106 17 139/85 97 07/04/19 07:15 07/04/19 07:15 07/04/19 07:15 07/04/19 07:15 07/04/19 07:15 Exam: Gen: mildly ill appearing 59 yo male in NAD. HEENT: mildly dry MM, NGT in place CV: RRR, tachycardic, no m/r/g Resp: CTA, no w/c/r Abd: distended this am, epigastric. Ext: no edema Cr 1.44 [Assessment: []59 yo male with metastatic adenocarcinoma of bladder s/p 12 cycles of mFOLFOX with plan to proceed with Atezoluzimab, however presented to the office on with severe N/V and abd. pain and was found to have ARF 2/2 hypovolemia and imaging concerning for gastric outlet obstruction. Work-up has included an EGD which revealed marked esophagitis, gastritis, and a small duodenal ulcer. No clear mechanical obstruction on CT or EGD. I suspect he has progressive peritoneal disease. Discussed that symptoms are likely from his cancer. Ultimately, his chance of improvement will be based on administration and response of Atezoluzimab. In the short term hope is that PPI and Reglan will improve gastric function enough to proceed with therapy. Plan: []1. Gastric outlet obstruction - Reglan 10 QAC and QHS, emphasized need to take consistently. - cont. PPI IV BID - If improved later today can discharge. 2. SUNG/FEN: improving - cont. IV fluids 3. If improvement Atezoluzimab 72 hrs after discharge.
--- NOTE | 2019-07-04 13:30 | PN ---
Progress Note - Progress Note Date of Service: 07/04/19 Note: I responded to a CAT call on the patient. He reportedly vomited directly on to his blanket. He became markedly tachycardic and hypoxic. His O2 sat was 80% on RA immediately when nursing found him. He was placed on oxymask and failed to have improvement in his O2 sat. Ultimately O2 increased to 15L. Saturations recovered in several minutes to 95-96% on 15L. He was able to be weaned over a couple minutes to 5L saturating 93-94%. HR remains elevated in the 123-127 range. He is feeling mildly anxious. He is upset he is not going to be able to go home. He is worried about lying back because then he feels like he will vomit. CXR pending. As his O2 saturation recovered, will monitor patient on the floor.
[2019-07-04] MEDS: LORazepam INJ* 2 MG/ML 1 ML VIAL IV PUSH PRN (13:31)
[2019-07-04] MEDS ORDERED: Scopolamine PATCH Remove* 1 NOTE MISC PATCH OFF ONE (23:30)
[2019-07-05] MEDS: NS 0.9% w/ 40 Meq KCL 1000 ML* 1,000 ML IV SCH ×2 (00:09→06:59)
[2019-07-05 06:32] LABS: Hematocrit 27 % (42-52); Hemoglobin 9.3 g/dL (14.0-18.0); Mean Corpuscular HGB Conc 35 g/dL (31-36); Mean Corpuscular Hemoglobin 32 pg (27-31); Mean Corpuscular Volume 91 fL (80-94); Mean Platelet Volume 7.8 fL (7.4-10.4); Platelet Count 228 10^3/uL (150-450); Red Blood Count 2.96 10^6 /uL (4.18-5.48); Red Cell Distribution Width 16 % (10-15); White Blood Count 14.3 10^3/uL (3.5-10.8)
[2019-07-05 06:52] LABS: Albumin/Globulin Ratio 0.8 (1-3); EGFR African American 70.9 (>60); EGFR Non-African American 58.6 (>60); Globulin 3.6 g/dL (2-4); Magnesium 1.8 mg/dL (1.9-2.7); Potassium 4.5 mmol/L (3.5-5.0); Total Bilirubin 0.5 mg/dL (0.2-1.0); Total Protein 6.6 g/dL (6.4-8.9)
[2019-07-05 07:12] LABS: ABS Eosinophils 0.3 10^3/ul (0-0.6); ABS Lymphocytes 0.7 10^3/ul (1.0-4.8); ABS Neutrophils 12.3 10^3/ul (1.5-7.7); Eosinophil % 2.4 %; Lymphocyte % 4.6 %
[2019-07-05] MEDS: Pantoprazole IV* 40 MG IV SCH ×2 (09:20→20:53)
[2019-07-05] MEDS: Metoclopramide LIQ* 10 MG/10 ML ORAL.SOLN PO SCH ×3 (09:20→16:55)
--- NOTE | 2019-07-05 13:55 | PN ---
Subjective Date of Service: 07/05/19 Interval History: Pt c/o mild left sided abd pain. attempted to take PO liquid with NG in place, but vomited again Objective Active Medications: Hyoscyamine (Anaspaz Tab*) 0.125 mg PO Q4H PRN PRN Reason: SPASMS Last Admin: 07/02/19 20:35 Dose: 0.125 mg Dextrose/Sodium Chloride (D5ns 0.9% 1000 Ml Bag*) 1,000 mls @ 125 mls/hr IV PER RATE [facility] Lorazepam (Ativan Inj*) 0.5 mg IV PUSH Q4H PRN PRN Reason: ANXIETY Last Admin: 07/04/19 13:31 Dose: 0.5 mg Metoclopramide HCl (Reglan Liq*) 10 mg PO AC [facility] Last Admin: 07/05/19 12:07 Dose: 10 mg Miscellaneous (Ativan Pyxis Booth) 1 ea N/A .ATIVAN IV BOOTH PRN PRN Reason: PYXIS BOOTH Morphine Sulfate (Morphine Inj (Syringe))*) 2 mg IV Q4H PRN PRN Reason: PAIN - MODERATE Last Admin: 07/04/19 16:06 Dose: 2 mg Ondansetron HCl (Zofran Inj*) 8 mg IV Q8H PRN PRN Reason: NAUSEA Last Admin: 07/02/19 17:57 Dose: 8 mg Pantoprazole Sodium (Protonix Iv*) 40 mg IV BID [facility] Last Admin: 07/05/19 09:20 Dose: 40 mg Vital Signs - 8 hr 07/05/19 07/05/19 07/05/19 07:35 09:42 11:38 Temperature 98.5 F 97.9 F Pulse Rate 107 109 Respiratory 18 18 18 Rate Blood Pressure 146/92 150/97 (mmHg) O2 Sat by Pulse 98 97 Oximetry Oxygen Devices in Use Now: None Appearance: 59 yo M in nAD, aAOx3 Eyes: No Scleral Icterus, PERRLA Ears/Nose/Mouth/Throat: NL Teeth, Lips, Gums, Mucous Membranes Moist Neck: NL Appearance and Movements; NL JVP Respiratory: Symmetrical Chest Expansion and Respiratory Effort, Clear to Auscultation Cardiovascular: NL Sounds; No Murmurs; No JVD, RRR Abdominal: - - soft, minimal tenderness in LUQ, no rebound, no guarding, BS+, urostomy pink draining straw coloured urine Extremities: No Edema Skin: No Rash or Ulcers, No Nodules or Sclerosis Neurological: Alert and Oriented x 3, NL Muscle Strength and Tone - Nutrition: Malnutrition Diagnosis/Plan Malnutrition Assessment by Registered Dietitian: Malnutrition Assessment Clinical Characteristics Chronic,Severe Malnutrition Assessment: Muscle Wasting - Temporal (moderate) Criteria Inadequate Oral Intake - Pt reports a poor appetite for some time; on clear liquid diet - Anticipate meeting <75% nutrient needs >1 mo ( severe) Unintentional Weight Loss - Pt reports unintentional wt loss; current wt 131lb, UBW 150lb x2 mos ago - 12.7% loss x2 mos (severe) Malnutrition Assessment: Nutritional Supplementals/Nourishments - Interventions Recommend advancing diet to soft as able; will send Ensure Clear (240kcal, 8g prot/serv) w/ B, L, and D daily to optimize kcal/prot intake; will monitor continued acceptance GI Related - Recommend continuing pain mgmt and antiemetics PRN; will monitor GI s/sx for ability to advance diet and impact on intake Malnutrition Assessment: Goals 1) Recommend advancing diet to soft as able 2) Pt will tolerate diet advancement w/o exac/ development of GI s/sx 3) Adequate po intake to replete lean body mass and support hydration status 4) Maintain fluid electrolyte balance w/ adequate po intake 5) Maintain bowel regularity w/ adequate po intake and bowel meds w/o exac of diarrhea/ development of constipation Result Diagrams: 07/05/19 06:25 07/05/19 06:25 Assess/Plan/Problems-Billing Assessment: 59 yo male with metastatic adenocarcinoma of bladder s/p 12 cycles of mFOLFOX with plan to proceed with Atezoluzimab, however presented to the office on with severe N/V and abd. pain and was found to have ARF 2/2 hypovolemia and imaging concerning for gastric outlet obstruction. Work-up has included an EGD which revealed marked esophagitis, gastritis, and a small duodenal ulcer. No clear mechanical obstruction on CT or EGD. Suspected he has progressive peritoneal disease. Discussed that symptoms are likely from his cancer. Ultimately, his chance of improvement will be based on administration and response of Atezoluzimab. In the short term hope is that PPI and Reglan will improve gastric function enough to proceed with therapy. Plan: 1. Gastric outlet obstruction - attempted to clamp NG and do PO trial -vomited and had 500 ml residual after NG placed back to suction, cont bowel rest - Reglan 10 QAC and QHS - cont. PPI IV BID 2. SUNG/FEN: improving - cont. IV fluids 3. If improvement Atezoluzimab 72 hrs after discharge.
[2019-07-05] MEDS ORDERED: D5W NS 0.9% 20Meq KCL 1000 ML* 1,000 ML IV SCH (14:00)
[2019-07-05] MEDS: D5NS 0.9% 1000 ML BAG* 1,000 ML IV SCH ×2 (14:42→22:44)
[2019-07-06] MEDS: LORazepam INJ* 2 MG/ML 1 ML VIAL IV PUSH PRN ×2 (04:09)
[2019-07-06 05:43] LABS: Hematocrit 27 % (42-52); Hemoglobin 9.4 g/dL (14.0-18.0); Mean Corpuscular HGB Conc 34 g/dL (31-36); Mean Corpuscular Hemoglobin 32 pg (27-31); Mean Corpuscular Volume 91 fL (80-94); Mean Platelet Volume 8.8 fL (7.4-10.4); Platelet Count 255 10^3/uL (150-450); Red Blood Count 2.98 10^6 /uL (4.18-5.48); Red Cell Distribution Width 16 % (10-15); White Blood Count 15.8 10^3/uL (3.5-10.8)
[2019-07-06 05:59] LABS: BUN/Creatinine Ratio 15.4 (8-20); Calcium 8.9 mg/dL (8.6-10.3); EGFR African American 72.9 (>60); EGFR Non-African American 60.2 (>60); Potassium 3.5 mmol/L (3.5-5.0)
[2019-07-06 06:10] LABS: Polychromasia 1+
[2019-07-06 06:11] LABS: ABS Eosinophils 0.5 10^3/ul (0-0.6); ABS Lymphocytes 0.8 10^3/ul (1.0-4.8); ABS Monocytes 1.4 10^3/ul (0-0.8); ABS Neutrophils 13.1 10^3/ul (1.5-7.7); Eosinophil % 3.3 %; Lymphocyte % 4.9 %
[2019-07-06] MEDS: D5NS 0.9% 1000 ML BAG* 1,000 ML IV SCH ×2 (06:49→17:27)
[2019-07-06] MEDS: Metoclopramide LIQ* 10 MG/10 ML ORAL.SOLN PO SCH (08:19)
[2019-07-06] MEDS: Pantoprazole IV* 40 MG IV SCH ×2 (08:19→21:19)
[2019-07-06] MEDS ORDERED: Metoclopramide IV* 5 MG/ML 2 ML VIAL IV SCH (09:23)
[2019-07-06] MEDS ORDERED: Magnesium Sulfate IV* 3 GM in NS 0.9% 100 ML* 100 ML IVPB ONE (09:24)
--- NOTE | 2019-07-06 09:38 | PN ---
Progress Note - Progress Note Date of Service: 07/06/19 SOAP: Subjective: []Starts and stops on trying to come off NGT. Had vomiting and near passed out on Saturday, NGT restarted. Clamped yesterday and had mild nausea, re-started suction. If feeling well today. Feels he can eat and wants to go home. Does not feel we are doing anything in hospital to help. Hyoscyamine (Anaspaz Tab*) 0.125 mg PO Q4H PRN PRN Reason: SPASMS Last Admin: 07/02/19 20:35 Dose: 0.125 mg Dextrose/Sodium Chloride (D5ns 0.9% 1000 Ml Bag*) 1,000 mls @ 125 mls/hr IV PER RATE [facility] Last Admin: 07/06/19 06:49 Dose: 125 mls/hr Magnesium Sulfate 3 gm/ Sodium (Chloride) 106 mls @ 53 mls/hr IVPB ONCE ONE Stop: 07/06/19 11:23 Lorazepam (Ativan Inj*) 0.5 mg IV PUSH Q4H PRN PRN Reason: ANXIETY Last Admin: 07/06/19 04:09 Dose: 0.5 mg Metoclopramide HCl (Reglan Iv*) 10 mg IV Q6H [facility] Miscellaneous (Ativan Pyxis Booth) 1 ea N/A .ATIVAN IV BOOTH PRN PRN Reason: PYXIS BOOTH Morphine Sulfate (Morphine Inj (Syringe))*) 2 mg IV Q4H PRN PRN Reason: PAIN - MODERATE Last Admin: 07/04/19 16:06 Dose: 2 mg Ondansetron HCl (Zofran Inj*) 8 mg IV Q8H PRN PRN Reason: NAUSEA Last Admin: 07/02/19 17:57 Dose: 8 mg Pantoprazole Sodium (Protonix Iv*) 40 mg IV BID [facility] Last Admin: 07/06/19 08:19 Dose: 40 mg Objective: [] Vital Signs Temp Pulse Resp BP Pulse Ox 98.0 F 107 16 143/97 94 07/06/19 08:15 07/06/19 08:15 07/06/19 08:15 07/06/19 08:15 07/06/19 08:15 Exam: Gen: mildly ill appearing 59 yo male in NAD. HEENT: mildly dry MM, NGT in place CV: RRR, tachycardic, no m/r/g Resp: CTA, no w/c/r Abd:non distended with NGT in. Ext: no edema Cr 1.23 Mg 1.9 K 3.5 [Assessment: []59 yo male with metastatic adenocarcinoma of bladder s/p 12 cycles of mFOLFOX with plan to proceed with Atezoluzimab, however presented to the office on with severe N/V and abd. pain and was found to have ARF 2/2 hypovolemia and imaging concerning for gastric outlet obstruction. Work-up has included an EGD which revealed marked esophagitis, gastritis, and a small duodenal ulcer. No clear mechanical obstruction on CT or EGD. I suspect he has progressive peritoneal disease and gastric stasis. Discussed that symptoms are likely from his cancer. If this does not improve he will in weeks. If he can be home and eating will start immunotherapy but needs to be out of hospital. He understands difficulty in situation and risk of from cancer in near future. Plan: []1. Gastric outlet obstruction - Reglan IV this am - Clamp NGT and re-challenge Cl Liq diet, if tolerated home later today. - Continue PPI and Reglan as PO meds at home. 2. SUNG/FEN: improving - cont. IV fluids - Replete Mg today and continue IVF with K. 3. Bladder cancer. If improvement Atezoluzimab 72 hrs after discharge. Prognosis poor. 4. DNR/DNI
[2019-07-06] MEDS: Metoclopramide IV* 5 MG/ML 2 ML VIAL IV SCH ×3 (09:43→21:54)
[2019-07-06] MEDS: Morphine INJ* 2 MG/ML 1 ML SYRINGE (TWO MG - NEW SYRINGE VERSION) IV PRN (15:23)
[2019-07-06] MEDS ORDERED: Acetaminophen TAB* 325 MG PO PRN (16:27)
--- NOTE | 2019-07-06 17:04 | CONSULT ---
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 First notes GERD symptoms 1 month ago that appeared intermittently at night. Within recent weeks, his reports his stomach would become distended and he would feel very nauseas and vomit. NG tube has relieved such symptoms. He now reports no distention or current nausea. Some crampy LLQ pain that is intermittent. Last BM was a small one this morning. Passing flatus. Appetite remains good. PMH:Anxiety, COPD, depression, GERD, gout, HLD, HTN, testicular cancer. PSH: Nephrostomy tubes. Urostomy procedure. Removal of Right testicle. Family history: Brother colon cancer. Social history: Daily smoker, 1 PPD for 15 years. 5 etoh drinks per week. Home Medications Medication Instructions Recorded Confirmed Type EPINEPHrine [Epipen 2-Vin] 0.3 mg INJ SEE INSTRUCTIONS PRN 11/23/14 06/30/19 History Eszopiclone 3 mg PO BEDTIME PRN 11/23/14 06/30/19 History Pantoprazole TAB * [Protonix TAB*] 40 mg PO QPM 11/23/14 06/30/19 History clonazePAM TAB(*) [Klonopin TAB(*)] 0.5 mg PO TID PRN 11/23/14 06/30/19 History oxyCODONE TAB* [Roxycodone TAB 5 5 mg PO BID PRN 10/16/18 06/30/19 History mg*] Docusate CAP* [Colace Cap*] 100 mg PO DAILY PRN 11/13/18 06/30/19 History Allergies Allergy/AdvReac Type Severity Reaction Status Date / Time iodine Allergy Hives Verified 01/19/19 15:28 shellfish derived Allergy Hives Verified 01/19/19 15:28 ROS: 12 point ros negative except as otherwise stated above. PEX General: Alert, in NAD. HEENT: PERRLA. Oropharynx clear. Trachea midline. NG tube in place. Heart: RRR, no MRG. Lungs: CTAB, no WRR. ABD: BS present. Soft, nondistended. Minimal tenderness in LLQ. Urostomy pink, straw colored output. No guarding or rebound tenderness Extremities: Calves soft and nontender. Distal pulses intact bilaterally. No edema. Assessment and plan: 59 yo man with adenocarcenoma of the bladder and possible gastric outlet obstruction vs dysmotility. Recommended gastric emptying study. Possible need for open j tube or GJ tube. Plan discussed with Dr. Pak.
[2019-07-06] MEDS: TPN* 24 HR with Dextrose 50% Water* 500 ML, Amino Acid Infusion 10%* 850 ML, Sterile Wa... CENTR SCH ×12 (18:34)
[2019-07-07] MEDS: Metoclopramide IV* 5 MG/ML 2 ML VIAL IV SCH ×4 (04:27→21:41)
[2019-07-07 06:32] LABS: Hematocrit 29 % (42-52); Hemoglobin 9.9 g/dL (14.0-18.0); Mean Corpuscular HGB Conc 34 g/dL (31-36); Mean Corpuscular Hemoglobin 31 pg (27-31); Mean Corpuscular Volume 91 fL (80-94); Mean Platelet Volume 8.6 fL (7.4-10.4); Platelet Count 286 10^3/uL (150-450); Red Blood Count 3.23 10^6 /uL (4.18-5.48); Red Cell Distribution Width 16 % (10-15); White Blood Count 17.8 10^3/uL (3.5-10.8)
[2019-07-07 06:49] LABS: Albumin 3.1 g/dL (3.2-5.2); Albumin/Globulin Ratio 0.8 (1-3); BUN/Creatinine Ratio 19.3 (8-20); Calcium 9.3 mg/dL (8.6-10.3); EGFR African American 75.7 (>60); EGFR Non-African American 62.6 (>60); Globulin 4.1 g/dL (2-4); Magnesium 2.1 mg/dL (1.9-2.7); Phosphorus 3.9 mg/dL (2.5-5.0); Potassium 3.5 mmol/L (3.5-5.0); Total Bilirubin 0.5 mg/dL (0.2-1.0); Total Protein 7.2 g/dL (6.4-8.9)
[2019-07-07 08:07] LABS: ABS Basophils 0.1 10^3/ul (0-0.2); ABS Eosinophils 0.6 10^3/ul (0-0.6); ABS Lymphocytes 1.1 10^3/ul (1.0-4.8); ABS Monocytes 1.6 10^3/ul (0-0.8); ABS Neutrophils 14.4 10^3/ul (1.5-7.7); Eosinophil % 3.5 %; Lymphocyte % 6.1 %; Nucleated Red Blood Cells % 0.1
[2019-07-07] MEDS: Pantoprazole IV* 40 MG IV SCH ×2 (09:53→21:41)
[2019-07-07] MEDS: Morphine INJ* 2 MG/ML 1 ML SYRINGE (TWO MG - NEW SYRINGE VERSION) IV PRN (09:53)
--- NOTE | 2019-07-07 10:25 | PN ---
Progress Note - Progress Note Date of Service: 07/07/19 SOAP: Subjective: [NGT removed last night. Some nausea and low volume vomiting. He would like to keep it out. He just returned from his gastric emptying study. Complains of some back pain from lying flat for so long. No abdominal pain. Struggling emotionally.] Objective: [ Vital Signs: Temp Pulse Resp BP Pulse Ox 98.3 F 120 16 153/96 96 07/07/19 10:01 07/07/19 10:01 07/07/19 10:01 07/07/19 10:01 07/07/19 10:01 Acetaminophen (Tylenol Tab*) 650 mg PO Q4H PRN PRN Reason: PAIN - MILD Last Admin: 07/06/19 17:09 Dose: 650 mg Hyoscyamine (Anaspaz Tab*) 0.125 mg PO Q4H PRN PRN Reason: SPASMS Last Admin: 07/02/19 20:35 Dose: 0.125 mg Dextrose 500 ml/ Amino Acids 850 ml/ Sterile Water 150 ml/Fat Emulsion Intravenous 250 ml/ Sodium Chloride 50 meq/Potassium Chloride 50 meq/Potassium Phosphate 15 mmole/Calcium Gluconate 10 meq/Magnesium Sulfate 10 meq/ Multivitamins 10 ml/ Trace Metals 1 ml/ Nutrition ( Parenteral) 1,827.468 mls @ 76.145 mls/hr [facility] Last Admin: 07/06/19 18:34 Dose: 76.145 mls/hr Lorazepam (Ativan Inj*) 0.5 mg IV PUSH Q4H PRN PRN Reason: ANXIETY Last Admin: 07/06/19 04:09 Dose: 0.5 mg Metoclopramide HCl (Reglan Iv*) 10 mg IV Q6H [facility] Last Admin: 07/07/19 09:53 Dose: 10 mg Miscellaneous (Ativan Pyxis Booth) 1 ea N/A .ATIVAN IV BOOTH PRN PRN Reason: PYXIS BOOTH Morphine Sulfate (Morphine Inj (Syringe))*) 2 mg IV Q4H PRN PRN Reason: PAIN - MODERATE Last Admin: 07/07/19 09:53 Dose: 2 mg Ondansetron HCl (Zofran Inj*) 8 mg IV Q8H PRN PRN Reason: NAUSEA Last Admin: 07/02/19 17:57 Dose: 8 mg Pantoprazole Sodium (Protonix Iv*) 40 mg IV BID [facility] Last Admin: 07/07/19 09:53 Dose: 40 mg Laboratory Results - last 24 hr 07/07/19 07/07/19 06:21 06:21 WBC 17.8 H RBC 3.23 L Hgb 9.9 L Hct 29 L MCV 91 MCH 31 MCHC 34 RDW 16 H Plt Count 286 MPV 8.6 Neut % (Auto) 81.0 Lymph % (Auto) 6.1 Frontier % (Auto) 9.1 Eos % (Auto) 3.5 Baso % (Auto) 0.3 Absolute Neuts (auto) 14.4 H Absolute Lymphs (auto) 1.1 Absolute Monos (auto) 1.6 H Absolute Eos (auto) 0.6 Absolute Basos (auto) 0.1 Absolute Nucleated RBC 0.0 Nucleated RBC % 0.1 Sodium 141 Potassium 3.5 Chloride 109 Carbon Dioxide 23 Anion Gap 9 BUN 23 Creatinine 1.19 H Est GFR ( Amer) 75.7 Est GFR (Non-Af Amer) 62.6 BUN/Creatinine Ratio 19.3 Glucose 131 H Calcium 9.3 Phosphorus 3.9 Magnesium 2.1 Total Bilirubin 0.50 AST 13 ALT 8 Alkaline Phosphatase 167 H Total Protein 7.2 Albumin 3.1 L Globulin 4.1 H Albumin/Globulin Ratio 0.8 L Triglycerides 262 ] [Exam: Gen: mildly ill appearing 59 yo male in NAD. HEENT: mildly dry MM CV: RRR, tachycardic, no m/r/g Resp: CTA, no w/c/r Abd: mildly distended, active BS Ext: no edema [Assessment: []59 yo male with metastatic adenocarcinoma of bladder s/p 12 cycles of mFOLFOX with plan to proceed with Atezoluzimab, however presented to the office on with severe N/V and abd. pain and was found to have ARF 2/2 hypovolemia and imaging concerning for gastric outlet obstruction. Work-up has included an EGD which revealed marked esophagitis, gastritis, and a small duodenal ulcer. No clear mechanical obstruction on CT or EGD. I suspect he has progressive peritoneal disease and gastric stasis. Gastric emptying study pending from this morning. Anticipate this will show severe gastroparesis. Discussed recommendation for G/J tube placement for symptom relief and opportunity to provide nutrition. Plan: []1. Gastric outlet obstruction - likely due to severe gastroparesis from peritoneal metastasis impairing peristalsis - gastric emptying study pending - recommend he remain NPO to prevent additional vomiting - recommend G/J tube placement, discussed with Dr Sauceda 2. SUNG/FEN: - TPN started 07/05, cont until more consistent nutrition can be delivered enterally 3. Bladder cancer. - If improvement Atezoluzimab 72 hrs after discharge. Prognosis poor. 4. DNR/DNI] Dispo: hopeful for dc home following G/J tube placement
[2019-07-07] MEDS: TPN* 24 HR with Dextrose 50% Water* 500 ML, Amino Acid Infusion 10%* 850 ML, Sterile Wa... CENTR SCH ×12 (17:18)
[2019-07-07] MEDS: LORazepam INJ* 2 MG/ML 1 ML VIAL IV PUSH PRN (21:58)
[2019-07-08] MEDS: Metoclopramide IV* 5 MG/ML 2 ML VIAL IV SCH ×4 (03:23→20:41)
[2019-07-08 06:04] LABS: Albumin 3.2 g/dL (3.2-5.2); Albumin/Globulin Ratio 0.7 (1-3); BUN/Creatinine Ratio 25.8 (8-20); Calcium 9.5 mg/dL (8.6-10.3); EGFR African American 72.2 (>60); EGFR Non-African American 59.7 (>60); Globulin 4.3 g/dL (2-4); Phosphorus 4.2 mg/dL (2.5-5.0); Potassium 3.7 mmol/L (3.5-5.0); Total Bilirubin 0.4 mg/dL (0.2-1.0); Total Protein 7.5 g/dL (6.4-8.9)
--- NOTE | 2019-07-08 09:22 | PN ---
Progress Note - Progress Note Date of Service: 07/08/19 SOAP: Subjective: [Patient reports feeling better today, was able to sleep well last night. He denies vomiting, nausea or abdominal pain. He reports feeling optimistic about scheduled G/J tube placement later today.] Objective: [ Acetaminophen (Tylenol Tab*) 650 mg PO Q4H PRN PRN Reason: PAIN - MILD Last Admin: 07/06/19 17:09 Dose: 650 mg Hyoscyamine (Anaspaz Tab*) 0.125 mg PO Q4H PRN PRN Reason: SPASMS Last Admin: 07/02/19 20:35 Dose: 0.125 mg Dextrose 500 ml/ Amino Acids 850 ml/ Sterile Water 150 ml/Fat Emulsion Intravenous 250 ml/ Sodium Chloride 50 meq/Potassium Chloride 50 meq/Potassium Phosphate 15 mmole/Calcium Gluconate 10 meq/Magnesium Sulfate 10 meq/ Multivitamins 10 ml/ Trace Metals 1 ml/ Nutrition ( Parenteral) 1,827.468 mls @ 76.145 mls/hr [facility] Last Admin: 07/07/19 17:18 Dose: 76.145 mls/hr Lorazepam (Ativan Inj*) 0.5 mg IV PUSH Q4H PRN PRN Reason: ANXIETY Last Admin: 07/07/19 21:58 Dose: 0.5 mg Metoclopramide HCl (Reglan Iv*) 10 mg IV 0300,0900,1500,2100 [facility] Last Admin: 07/08/19 03:23 Dose: 10 mg Miscellaneous (Ativan Pyxis Booth) 1 ea N/A .ATIVAN IV BOOTH PRN PRN Reason: PYXIS BOOTH Morphine Sulfate (Morphine Inj (Syringe))*) 2 mg IV Q4H PRN PRN Reason: PAIN - MODERATE Last Admin: 07/07/19 09:53 Dose: 2 mg Ondansetron HCl (Zofran Inj*) 8 mg IV Q8H PRN PRN Reason: NAUSEA Last Admin: 07/02/19 17:57 Dose: 8 mg Pantoprazole Sodium (Protonix Iv*) 40 mg IV BID [facility] Last Admin: 07/07/19 21:41 Dose: 40 mg Vital Signs Temp Pulse Resp BP Pulse Ox 98.5 F 116 18 143/94 96 07/08/19 07:29 07/08/19 07:29 07/08/19 07:29 07/08/19 07:29 07/08/19 07:29 Laboratory Results - last 24 hr 07/07/19 07/07/19 07/08/19 03:51 20:00 00:29 Sodium Potassium Chloride Carbon Dioxide Anion Gap BUN Creatinine Est GFR ( Amer) Est GFR (Non-Af Amer) BUN/Creatinine Ratio Glucose POC Glucose (mg/dL) 152 H 135 H 145 H Calcium Phosphorus Magnesium Total Bilirubin AST ALT Alkaline Phosphatase Total Protein Albumin Globulin Albumin/Globulin Ratio Prealbumin Triglycerides Cholesterol 07/08/19 07/08/19 07/08/19 03:32 05:30 08:02 Sodium 142 Potassium 3.7 Chloride 109 Carbon Dioxide 22 Anion Gap 11 BUN 32 H Creatinine 1.24 H Est GFR ( Amer) 72.2 Est GFR (Non-Af Amer) 59.7 BUN/Creatinine Ratio 25.8 H Glucose 126 H POC Glucose (mg/dL) 130 H 151 H Calcium 9.5 Phosphorus 4.2 Magnesium 2.0 Total Bilirubin 0.40 AST 17 ALT 11 Alkaline Phosphatase 192 H Total Protein 7.5 Albumin 3.2 Globulin 4.3 H Albumin/Globulin Ratio 0.7 L Prealbumin 10 L Triglycerides 313 Cholesterol 120 Exam: General: mildly ill appearing, in no acute distress. HEENT: normocephalic, dry MM. Cardiac: HRR Resp: non-labored, RRR. Abd: +BS, abd slightly distended. Extremities: no edema. Neuro: A&O x3, verbalizes understanding of planned procedure.] Assessment: []59 yo male with metastatic adenocarcinoma of bladder s/p 12 cycles of mFOLFOX with plan to proceed with Atezoluzimab, however presented to the office on with severe N/V and abd. pain and was found to have ARF 2/2 hypovolemia and imaging concerning for gastric outlet obstruction. Work-up has included an EGD which revealed marked esophagitis, gastritis, and a small duodenal ulcer. No clear mechanical obstruction on CT or EGD. I suspect he has progressive peritoneal disease and gastric stasis. Gastric emptying study confirmed gastroparesis. Discussed recommendation for G/ J tube placement for symptom relief and opportunity to provide nutrition. This is scheduled for 2pm today, will coordinate nutrition consult following procedure. Plan: []1. Gastric outlet obstruction - due to severe gastroparesis from peritoneal metastasis impairing peristalsis - recommend he remain NPO to prevent additional vomiting - recommend G/J tube placement, discussed with Dr Sauceda who will perform procedure today at 2pm. 2. SUNG/FEN: - TPN started 07/05, cont until more consistent nutrition can be delivered enterally 3. Bladder cancer. - If improvement Atezoluzimab 72 hrs after discharge. Prognosis poor. 4. DNR/DNI Dispo: hopeful for dc home following G/J tube placement]
[2019-07-08] MEDS: Pantoprazole IV* 40 MG IV SCH ×2 (09:57→20:42)
[2019-07-08 11:55] LABS: Mean Platelet Volume 8.7 fL (7.4-10.4); Platelet Count 361 10^3/uL (150-450)
[2019-07-08 12:01] LABS: INR 1.23 (0.82-1.09)
[2019-07-08] MEDS ORDERED: Glucagon* 1 MG VIAL ONE (12:59)
[2019-07-08] MEDS ORDERED: Ondansetron INJ* 2 MG/ML VIAL ONE (13:00)
[2019-07-08] MEDS: Ondansetron INJ* 2 MG/ML VIAL IV PRN (13:04)
[2019-07-08] MEDS ORDERED: Midazolam* 1 MG/ML 2 ML VIAL (2 MG) ONE ×2 (13:08→15:24)
[2019-07-08] MEDS ORDERED: fentaNYL* 50 MCG/ML 2 ML VIAL (100 MCG VIAL) ONE ×2 (13:08→15:24)
[2019-07-08] MEDS ORDERED: ceFAZolin 1 GM* X ONE DOSE (AddVan) IVPB ×2 (14:00)
[2019-07-08] MEDS ORDERED: Bupivacaine 0.5% SDV PF* 30ML VIAL ONE (14:13)
--- NOTE | 2019-07-08 16:09 | BRIEFOPN ---
Brief Operative/Procedure Note - Operation Details Pre-Op Diagnosis: Bladder Cancer. Bowel paresis. Post-Op Diagnosis: Same. Procedures: Ultrasound and fluoroscopy guided GJ tube placement. Surgeon(s)/Proceduralists: Isak Sauceda M.D. Anesthesia: 0.5% bupivicaine locally. Conscious sedation with Fentanyl & Versed Estimated Blood Loss: Minimal Findings: 1. Greatly distended stomach. Approximately 2 liters of malodorous bilious fluid was drained from the gastric vent. 2. Inability to advance wire beyond 3rd portion of duodenum at midline. Specimen(s)/Culture(s) Description: 2 liters bilious fluid. Complications: Jejunum limb of feeding tube retracted during wire removal and is now looped in gastric antrum. DO NOT ADMINISTER JEJUNAL FEEDINGS.
[2019-07-08] MEDS: Morphine INJ* 2 MG/ML 1 ML SYRINGE (TWO MG - NEW SYRINGE VERSION) IV PRN ×2 (17:06→20:42)
[2019-07-08] MEDS: TPN* 24 HR with Dextrose 50% Water* 500 ML, Amino Acid Infusion 10%* 850 ML, Sterile Wa... CENTR SCH ×12 (17:10)
[2019-07-09] MEDS: Metoclopramide IV* 5 MG/ML 2 ML VIAL IV SCH ×4 (03:44→21:09)
[2019-07-09 06:14] LABS: Albumin 3.2 g/dL (3.2-5.2); Albumin/Globulin Ratio 0.7 (1-3); BUN/Creatinine Ratio 34.2 (8-20); Calcium 9.4 mg/dL (8.6-10.3); EGFR African American 55.8 (>60); EGFR Non-African American 46.1 (>60); Globulin 4.4 g/dL (2-4); Magnesium 2.1 mg/dL (1.9-2.7); Phosphorus 4.4 mg/dL (2.5-5.0); Potassium 4.2 mmol/L (3.5-5.0); Total Bilirubin 0.5 mg/dL (0.2-1.0); Total Protein 7.6 g/dL (6.4-8.9)
[2019-07-09] MEDS: Morphine INJ* 2 MG/ML 1 ML SYRINGE (TWO MG - NEW SYRINGE VERSION) IV PRN ×2 (07:42→20:13)
[2019-07-09] MEDS: Pantoprazole IV* 40 MG IV SCH ×2 (09:21→21:09)
[2019-07-09 09:29] LABS: Hematocrit 30 % (42-52); Hemoglobin 10.7 g/dL (14.0-18.0); Mean Corpuscular HGB Conc 35 g/dL (31-36); Mean Corpuscular Hemoglobin 32 pg (27-31); Mean Corpuscular Volume 91 fL (80-94); Mean Platelet Volume 8.9 fL (7.4-10.4); Platelet Count 315 10^3/uL (150-450); Red Blood Count 3.33 10^6 /uL (4.18-5.48); Red Cell Distribution Width 16 % (10-15); White Blood Count 17.9 10^3/uL (3.5-10.8)
[2019-07-09 09:58] LABS: ABS Basophils 0.1 10^3/ul (0-0.2); ABS Eosinophils 0.2 10^3/ul (0-0.6); ABS Lymphocytes 0.9 10^3/ul (1.0-4.8); ABS Monocytes 1.1 10^3/ul (0-0.8); ABS Neutrophils 15.6 10^3/ul (1.5-7.7); Eosinophil % 1.3 %; Lymphocyte % 4.9 %
--- NOTE | 2019-07-09 10:04 | PN ---
Progress Note - Progress Note Date of Service: 07/09/19 SOAP: Subjective: [Patient reports some discomfort at surgical site. He reports he was able to sleep okay last night, pain is well controlled with narcotics (Morphine) as needed.] Objective: [ Vital Signs: Temp Pulse Resp BP Pulse Ox 97.8 F 122 20 111/74 95 07/09/19 07:27 07/09/19 07:27 07/09/19 08:00 07/09/19 07:27 07/09/19 07:27 Acetaminophen (Tylenol Tab*) 650 mg PO Q4H PRN PRN Reason: PAIN - MILD Last Admin: 07/06/19 17:09 Dose: 650 mg Hyoscyamine (Anaspaz Tab*) 0.125 mg PO Q4H PRN PRN Reason: SPASMS Last Admin: 07/02/19 20:35 Dose: 0.125 mg Dextrose 500 ml/ Amino Acids 850 ml/ Sterile Water 150 ml/Fat Emulsion Intravenous 250 ml/ Sodium Chloride 50 meq/Potassium Chloride 50 meq/Potassium Phosphate 15 mmole/Calcium Gluconate 10 meq/Magnesium Sulfate 10 meq/ Multivitamins 10 ml/ Trace Metals 1 ml/ Nutrition ( Parenteral) 1,827.468 mls @ 76.145 mls/hr [facility] Last Admin: 07/08/19 17:10 Dose: 76.145 mls/hr Lorazepam (Ativan Inj*) 0.5 mg IV PUSH Q4H PRN PRN Reason: ANXIETY Last Admin: 07/07/19 21:58 Dose: 0.5 mg Metoclopramide HCl (Reglan Iv*) 10 mg IV 0300,0900,1500,2100 [facility] Last Admin: 07/09/19 09:21 Dose: 10 mg Miscellaneous (Ativan Pyxis Booth) 1 ea N/A .ATIVAN IV BOOTH PRN PRN Reason: PYXIS BOOTH Morphine Sulfate (Morphine Inj (Syringe))*) 2 mg IV Q4H PRN PRN Reason: PAIN - MODERATE Last Admin: 07/09/19 07:42 Dose: 2 mg Ondansetron HCl (Zofran Inj*) 8 mg IV Q8H PRN PRN Reason: NAUSEA Last Admin: 07/08/19 13:04 Dose: 4 mg Pantoprazole Sodium (Protonix Iv*) 40 mg IV BID [facility] Last Admin: 07/09/19 09:21 Dose: 40 mg Laboratory Results - last 24 hr 07/08/19 07/08/19 07/08/19 11:35 11:35 16:16 WBC RBC Hgb Hct MCV MCH MCHC RDW Plt Count 361 MPV 8.7 Neut % (Auto) Lymph % (Auto) [place] % (Auto) Eos % (Auto) Baso % (Auto) Absolute Neuts (auto) Absolute Lymphs (auto) Absolute Monos (auto) Absolute Eos (auto) Absolute Basos (auto) Absolute Nucleated RBC Immature Gran % Neutrophils % Band Neutrophils % Lymphocytes % Monocytes % Eosinophils % Myelocytes % Nucleated RBC % Normal RBC Morphology INR (Anticoag Therapy) 1.23 H Sodium Potassium Chloride Carbon Dioxide Anion Gap BUN Creatinine Est GFR ( Amer) Est GFR (Non-Af Amer) BUN/Creatinine Ratio Glucose POC Glucose (mg/dL) 139 H Calcium Phosphorus Magnesium Total Bilirubin AST ALT Alkaline Phosphatase Total Protein Albumin Globulin Albumin/Globulin Ratio Prealbumin Triglycerides Cholesterol 07/08/19 07/09/19 07/09/19 20:24 00:39 05:35 WBC RBC Hgb Hct MCV MCH MCHC RDW Plt Count MPV Neut % (Auto) Lymph % (Auto) [place] % (Auto) Eos % (Auto) Baso % (Auto) Absolute Neuts (auto) Absolute Lymphs (auto) Absolute Monos (auto) Absolute Eos (auto) Absolute Basos (auto) Absolute Nucleated RBC Immature Gran % Neutrophils % Band Neutrophils % Lymphocytes % Monocytes % Eosinophils % Myelocytes % Nucleated RBC % Normal RBC Morphology INR (Anticoag Therapy) Sodium 142 Potassium 4.2 Chloride 112 H Carbon Dioxide 19 L Anion Gap 11 BUN 53 H Creatinine 1.55 H Est GFR ( Amer) 55.8 Est GFR (Non-Af Amer) 46.1 BUN/Creatinine Ratio 34.2 H Glucose 141 H POC Glucose (mg/dL) 152 H 175 H Calcium 9.4 Phosphorus 4.4 Magnesium 2.1 Total Bilirubin 0.50 AST 15 ALT 13 Alkaline Phosphatase 228 H Total Protein 7.6 Albumin 3.2 Globulin 4.4 H Albumin/Globulin Ratio 0.7 L Prealbumin 13 L Triglycerides 243 Cholesterol 115 07/09/19 09:04 WBC 17.9 H RBC 3.33 L Hgb 10.7 L Hct 30 L MCV 91 MCH 32 H MCHC 35 RDW 16 H Plt Count 315 MPV 8.9 Neut % (Auto) 87.3 Lymph % (Auto) 4.9 [place] % (Auto) 6.2 Eos % (Auto) 1.3 Baso % (Auto) 0.3 Absolute Neuts (auto) 15.6 H Absolute Lymphs (auto) 0.9 L Absolute Monos (auto) 1.1 H Absolute Eos (auto) 0.2 Absolute Basos (auto) 0.1 Absolute Nucleated RBC 0.0 Immature Gran % 2.0 Neutrophils % 90.0 Band Neutrophils % 1.0 Lymphocytes % 1.0 Monocytes % 6.0 Eosinophils % 1.0 Myelocytes % 1.0 Nucleated RBC % 0.0 Normal RBC Morphology Normal INR (Anticoag Therapy) Sodium Potassium Chloride Carbon Dioxide Anion Gap BUN Creatinine Est GFR ( Amer) Est GFR (Non-Af Amer) BUN/Creatinine Ratio Glucose POC Glucose (mg/dL) Calcium Phosphorus Magnesium Total Bilirubin AST ALT Alkaline Phosphatase Total Protein Albumin Globulin Albumin/Globulin Ratio Prealbumin Triglycerides Cholesterol Exam: General: mildly ill appearing, in no acute distress. HEENT: normocephalic. Resp: RRR Cardiac: HRR Abd: non-distended, minimal tenderness to LUQ. G tube in place, ostomy in place. Extremities: no edema Neuro: A&O x 3. Assessment: []59 yo male with metastatic adenocarcinoma of bladder s/p 12 cycles of mFOLFOX with plan to proceed with Atezoluzimab, however presented to the office on with severe N/V and abd. pain and was found to have ARF 2/2 hypovolemia and imaging concerning for gastric outlet obstruction. Work-up has included an EGD which revealed marked esophagitis, gastritis, and a small duodenal ulcer. No clear mechanical obstruction on CT or EGD. I suspect he has progressive peritoneal disease and gastric stasis. Gastric emptying study confirmed gastroparesis. Discussed recommendation for G/ J tube placement for symptom relief and opportunity to provide nutrition. This was performed on 07/08/[address] Sauceda, unfortunately the jejunum limb of feeding tube retracted during wire removal and is now looped in gastric atrum. Patient is scheduled for EGD today around 1130 in attempt to release the limb of feeding tube. Plan: []1. Gastric outlet obstruction - due to severe gastroparesis from peritoneal metastasis impairing peristalsis - recommend he remain NPO to prevent additional vomiting - EGD today in attempt to release J tube limb from gastric atrum. 2. SUNG/FEN: - TPN started 07/05, cont until more consistent nutrition can be delivered enterally 3. Bladder cancer. - If improvement Atezoluzimab 72 hrs after discharge. Prognosis poor. 4. DNR/DNI Dispo: hopeful for dc home following G/J tube placement]
[2019-07-09] MEDS ORDERED: Midazolam* 1 MG/ML 10 ML VIAL (10 MG) ONE (10:50)
[2019-07-09] MEDS ORDERED: fentaNYL* 50 MCG/ML 2 ML VIAL (100 MCG VIAL) ONE (10:50)
--- NOTE | 2019-07-09 11:16 | PN ---
Progress Note - Progress Note Date of Service: 07/09/19 SOAP: Subjective: The patient reports mild tenderness at the left upper quadrant at the tube site but overall reports less epigastric pain as well as reduced nausea. Objective: Selected Entries 07/09/19 07/09/19 07:27 08:00 Temperature 97.8 F Pulse Rate 122 Respiratory 18 Rate Blood Pressure 111/74 (mmHg) Blood Pressure 86 Mean O2 Sat by Pulse 95 Oximetry Patient on Room Yes Air NAD, AAO x 3 The epigastric area and area around the feeding tube is soft. There is minimal tenderness at the feeding tube site. The overlying dressing is clean and dry. Green bilious fluid fills the drainage bag attached to the gastric vent. Gastric vent output records 1200 mL since placement of the GJ tube. Assessment: 59-year-old man postop day #1 status post placement of a gastrojejunostomy tube. At the end of the procedure, the jejunal portion of the feeding tube retracted back into the gastric fundus and currently resides in the stomach, not in the duodenum and jejunum. Plan: 1. The gastric portion of the feeding tube will continue to vent the stomach unless otherwise directed by the oncology service. 2. Dr. Richmond will evaluate the patient to determine the feasibility of endoscopically guided advancement of the jejunal tube. 3. If the jejunal portion of the tube cannot be advanced into the small bowel via endoscopy, then the alternative will be repeat fluoroscopic guided advancement of the tube. This can be done 07/10/2019 if necessary. I discussed this with the patient at the bedside including the alternatives to advance the jejunal tube into the small bowel.
[2019-07-09] MEDS ORDERED: TPN* 24 HR with Dextrose 50% Water* 500 ML, Amino Acid Infusion 10%* 850 ML, Sterile Wa... CENTR SCH ×12 (11:18)
--- NOTE | 2019-07-09 12:58 | PN ---
Progress Note - Progress Note Date of Service: 07/09/19 Note: EGD procedure note: 75 mcg fent, 10 mg versed E----mild EE G---Gtube with J extension; was able to grab with bx forcep and gently drag into distal duod, but each time (x3) it sprung back into stomach with scope withdrawl D---nml unsuccessful placement of J tube into D/J Tom Richmond MD
--- NOTE | 2019-07-09 15:38 | PRO ---
DATE OF PROCEDURE: 07/09/2019. PROCEDURE PERFORMED: EGD. INDICATION: Malfunctioning PEG tube, G-tube curled in the stomach. MEDICATIONS GIVEN: 75 mcg IV Fentanyl and 13 mg IV Versed. PROCEDURE: After the EGD procedure, including the risks, benefits, and alternatives, not limited to perforation, surgery and/or were explained to the patient, written consent was then obtained. IV medication was given and a bite- block was placed between the teeth. An Olympus gastroscope was t hen inserted into the patient's mouth, advanced down the esophagus, into the stomach and into the dis tatiana duodenum. I was able to successfully navigate through the pylorus. There is a bit of an acute a ngle to get from the stomach, through the pylorus, into the duodenal bulb, and down into the distal d uodenum. I then withdrew the scope and found the long jejunal limb of the feeding tube and was able to grasp it with the biopsy forceps. I was able to drag it down to at least the third portion of the duodenum three different times; however, at each time I released the biopsy forceps and starting wit hdrawing the scope, I tried to make sure that nothing was touching the tube. Unfortunately, each brandon e the tube flipped back into the stomach. It does appear that the length of the tube is making it mo re difficult for it to stay down in the duodenum. I spent approximately 25 minutes trying to maintai n the tube down in the small intestine. It was unsuccessful. The scope was withdrawn from the patie nt. He tolerated the procedure well and was returned to the recovery room in stable condition. IMPRESSION: 1. Complete upper endoscopy into the distal duodenum with unsuccessful G-tube extension. 2. Erosive esophagitis. [id number]/[facility] #: [id number]
[2019-07-10] MEDS: LORazepam INJ* 2 MG/ML 1 ML VIAL IV PUSH PRN (00:58)
[2019-07-10] MEDS: Morphine INJ* 2 MG/ML 1 ML SYRINGE (TWO MG - NEW SYRINGE VERSION) IV PRN ×3 (02:04→20:17)
[2019-07-10] MEDS: Metoclopramide IV* 5 MG/ML 2 ML VIAL IV SCH ×4 (04:05→20:18)
[2019-07-10 06:03] LABS: Hematocrit 32 % (42-52); Hemoglobin 10.6 g/dL (14.0-18.0); Mean Corpuscular HGB Conc 33 g/dL (31-36); Mean Corpuscular Hemoglobin 30 pg (27-31); Mean Corpuscular Volume 91 fL (80-94); Mean Platelet Volume 8.9 fL (7.4-10.4); Platelet Count 333 10^3/uL (150-450); Red Blood Count 3.49 10^6 /uL (4.18-5.48); Red Cell Distribution Width 17 % (10-15); White Blood Count 20.7 10^3/uL (3.5-10.8)
[2019-07-10 06:22] LABS: Albumin 3.1 g/dL (3.2-5.2); Albumin/Globulin Ratio 0.7 (1-3); BUN/Creatinine Ratio 37.7 (8-20); Calcium 9.7 mg/dL (8.6-10.3); EGFR African American 63.8 (>60); EGFR Non-African American 52.7 (>60); Globulin 4.6 g/dL (2-4); Phosphorus 3.9 mg/dL (2.5-5.0); Total Bilirubin 0.9 mg/dL (0.2-1.0); Total Protein 7.7 g/dL (6.4-8.9)
[2019-07-10 06:24] LABS: ABS Basophils 0.1 10^3/ul (0-0.2); ABS Eosinophils 0.4 10^3/ul (0-0.6); ABS Lymphocytes 0.8 10^3/ul (1.0-4.8); ABS Monocytes 1.3 10^3/ul (0-0.8); ABS Neutrophils 18.3 10^3/ul (1.5-7.7); Eosinophil % 1.7 %; Lymphocyte % 3.6 %
[2019-07-10] MEDS: Pantoprazole IV* 40 MG IV SCH ×2 (08:21→20:18)
[2019-07-10 08:27] LABS: Potassium 4.4 mmol/L (3.5-5.0)
[2019-07-10] MEDS ORDERED: Bupivacaine 0.5% SDV PF* 30ML VIAL ONE (10:40)
[2019-07-10] MEDS ORDERED: Midazolam* 1 MG/ML 2 ML VIAL (2 MG) ONE ×2 (10:40→11:43)
[2019-07-10] MEDS ORDERED: fentaNYL* 50 MCG/ML 2 ML VIAL (100 MCG VIAL) ONE ×2 (10:40→12:20)
--- NOTE | 2019-07-10 11:12 | PN ---
Progress Note - Progress Note Date of Service: 07/10/19 SOAP: Subjective: [Patient is currently off the floor for his tube exchange. Unfortunately, the attempt at repositioning the J limb endoscopically was unsuccessful.] Objective: [ Vital Signs: Temp Pulse Resp BP Pulse Ox 98.6 F 129 18 138/87 96 07/10/19 07:43 07/10/19 07:43 07/10/19 08:18 07/10/19 07:43 07/10/19 07:43 Acetaminophen (Tylenol Tab*) 650 mg PO Q4H PRN PRN Reason: PAIN - MILD Last Admin: 07/06/19 17:09 Dose: 650 mg Hyoscyamine (Anaspaz Tab*) 0.125 mg PO Q4H PRN PRN Reason: SPASMS Last Admin: 07/02/19 20:35 Dose: 0.125 mg Dextrose 500 ml/ Amino Acids 850 ml/ Sterile Water 150 ml/Fat Emulsion Intravenous 250 ml/ Sodium Chloride 50 meq/Potassium Chloride 40 meq/Potassium Phosphate 15 mmole/Calcium Gluconate 10 meq/Magnesium Sulfate 10 meq/ Multivitamins 10 ml/ Trace Metals 1 ml/ Nutrition ( Parenteral) 1,822.468 mls @ 75.936 mls/hr [facility] Last Admin: 07/09/19 16:50 Dose: 75.936 mls/hr Lorazepam (Ativan Inj*) 0.5 mg IV PUSH Q4H PRN PRN Reason: ANXIETY Last Admin: 07/10/19 00:58 Dose: 0.5 mg Metoclopramide HCl (Reglan Iv*) 10 mg IV 0300,0900,1500,2100 [facility] Last Admin: 07/10/19 08:20 Dose: 10 mg Miscellaneous (Ativan Pyxis Booth) 1 ea N/A .ATIVAN IV BOOTH PRN PRN Reason: PYXIS BOOTH Morphine Sulfate (Morphine Inj (Syringe))*) 2 mg IV Q4H PRN PRN Reason: PAIN - MODERATE Last Admin: 07/10/19 08:18 Dose: 2 mg Ondansetron HCl (Zofran Inj*) 8 mg IV Q8H PRN PRN Reason: NAUSEA Last Admin: 07/08/19 13:04 Dose: 4 mg Pantoprazole Sodium (Protonix Iv*) 40 mg IV BID [facility] Last Admin: 07/10/19 08:21 Dose: 40 mg Laboratory Results - last 24 hr 07/09/19 07/09/19 07/09/19 03:55 13:42 16:52 WBC RBC Hgb Hct MCV MCH MCHC RDW Plt Count MPV Neut % (Auto) Lymph % (Auto) [place] % (Auto) Eos % (Auto) Baso % (Auto) Absolute Neuts (auto) Absolute Lymphs (auto) Absolute Monos (auto) Absolute Eos (auto) Absolute Basos (auto) Absolute Nucleated RBC Immature Gran % Neutrophils % Lymphocytes % Monocytes % Eosinophils % Metamyelocytes % Myelocytes % Nucleated RBC % Toxic Granulation Normal RBC Morphology Sodium Potassium Chloride Carbon Dioxide Anion Gap BUN Creatinine Est GFR ( Amer) Est GFR (Non-Af Amer) BUN/Creatinine Ratio Glucose POC Glucose (mg/dL) 162 H 137 H 128 H Calcium Phosphorus Magnesium Total Bilirubin AST ALT Alkaline Phosphatase Total Protein Albumin Globulin Albumin/Globulin Ratio Prealbumin Triglycerides Cholesterol 07/09/19 07/10/19 07/10/19 21:17 01:59 05:38 WBC RBC Hgb Hct MCV MCH MCHC RDW Plt Count MPV Neut % (Auto) Lymph % (Auto) [place] % (Auto) Eos % (Auto) Baso % (Auto) Absolute Neuts (auto) Absolute Lymphs (auto) Absolute Monos (auto) Absolute Eos (auto) Absolute Basos (auto) Absolute Nucleated RBC Immature Gran % Neutrophils % Lymphocytes % Monocytes % Eosinophils % Metamyelocytes % Myelocytes % Nucleated RBC % Toxic Granulation Normal RBC Morphology Sodium 143 Potassium 4.4 Chloride 114 H Carbon Dioxide 17 L Anion Gap 12 H BUN 52 H Creatinine 1.38 H Est GFR ( Amer) 63.8 Est GFR (Non-Af Amer) 52.7 BUN/Creatinine Ratio 37.7 H Glucose 115 H POC Glucose (mg/dL) 148 H 150 H Calcium 9.7 Phosphorus 3.9 Magnesium 2.0 Total Bilirubin 0.90 AST 16 ALT 12 Alkaline Phosphatase 212 H Total Protein 7.7 Albumin 3.1 L Globulin 4.6 H Albumin/Globulin Ratio 0.7 L Prealbumin 12 L Triglycerides 246 Cholesterol 130 07/10/19 07/10/19 07/10/19 05:38 05:42 09:47 WBC 20.7 H RBC 3.49 L Hgb 10.6 L Hct 32 L MCV 91 MCH 30 MCHC 33 RDW 17 H Plt Count 333 MPV 8.9 Neut % (Auto) 88.1 Lymph % (Auto) 3.6 [place] % (Auto) 6.4 Eos % (Auto) 1.7 Baso % (Auto) 0.2 Absolute Neuts (auto) 18.3 H Absolute Lymphs (auto) 0.8 L Absolute Monos (auto) 1.3 H Absolute Eos (auto) 0.4 Absolute Basos (auto) 0.1 Absolute Nucleated RBC 0.0 Immature Gran % 5.0 Neutrophils % 92.0 Lymphocytes % 1.0 Monocytes % 1.0 Eosinophils % 1.0 Metamyelocytes % 3.0 H Myelocytes % 2.0 H Nucleated RBC % 0.0 Toxic Granulation 1+ Normal RBC Morphology Normal Sodium Potassium Chloride Carbon Dioxide Anion Gap BUN Creatinine Est GFR ( Amer) Est GFR (Non-Af Amer) BUN/Creatinine Ratio Glucose POC Glucose (mg/dL) 131 H 161 H Calcium Phosphorus Magnesium Total Bilirubin AST ALT Alkaline Phosphatase Total Protein Albumin Globulin Albumin/Globulin Ratio Prealbumin Triglycerides Cholesterol [Assessment: []59 yo male with metastatic adenocarcinoma of bladder s/p 12 cycles of mFOLFOX with plan to proceed with Atezoluzimab, however presented to the office on with severe N/V and abd. pain and was found to have ARF 2/2 hypovolemia and imaging concerning for gastric outlet obstruction. Work-up has included an EGD which revealed marked esophagitis, gastritis, and a small duodenal ulcer. No clear mechanical obstruction on CT or EGD. Gastric emptying study confirmed gastroparesis. Gastroparesis is suspected to be due to progressive peritoneal disease causing gastric stasis. Plan has been for G/J tube placement for symptom relief and opportunity to provide nutrition. This was performed on 07/08/[address] Sauceda, unfortunately the jejunum limb of feeding tube retracted during wire removal and is now looped in gastric atrum. Attempt at endoscopic repositioning was unsuccessful. Patient is going back to IR today for attempt at tube exchange with a shorter tube. Noted progressive leukocytosis over the last several days. Upon review of vitals it looks like he has had intermittent low grade fevers (most recent ~30 hours ago). Will plan to panculture and empirically cover with broad spectrum abx. Plan: []1. Gastric outlet obstruction - due to severe gastroparesis from peritoneal metastasis impairing peristalsis - recommend he remain NPO to prevent additional vomiting - G/J tube exchange with IR today 2. SUNG/FEN: - TPN started 07/05, cont until more consistent nutrition can be delivered enterally - reviewed TPN changes with pharmacy today - Cr now back to near baseline - will request sales and service advisor consult for tube feedings when tube is successfully secured 4. Leukocytosis - obtain blood cultures (port and peripheral) along with urine culture - empirically cover with Cefepime until cultures return 3. Bladder cancer. - If improvement Atezoluzimab 72 hrs after discharge. Prognosis poor. 4. DNR/DNI Dispo: hopeful for dc home following successful G/J tube placement]
[2019-07-10] MEDS: Cefepime 2 GM in Dextrose(*) 2 GM/50 ML BAG IV SCH (13:44)
[2019-07-10 14:18] LABS: Urine Appearance Cloudy; Urine Bilirubin Negative (Negative); Urine Blood Negative (Negative); Urine Color Yellow; Urine Glucose Negative (Negative); Urine Ketones Negative (Negative); Urine Nitrite Negative (Negative); Urine Protein 1+(30 mg/dL) (Negative); Urine Specific Gravity 1.016 (1.010-1.030); Urine Urobilinogen Negative (Negative)
[2019-07-10 14:38] LABS: Urine Bacteria 1+ (Absent); Urine Granular Casts Present (Absent); Urine Red Blood Cell 3+(>10/hpf) (Absent); Urine White Blood Cell 3+(>20/hpf) (Absent)
--- NOTE | 2019-07-10 16:19 | BRIEFOPN ---
Brief Operative/Procedure Note - Operation Details Pre-Op Diagnosis: 1. Bowel paresis. 2. Inability to advance the jejunal tube portion of a gastro-jejunostomy feeding tube. 3. Bladder cancer. Post-Op Diagnosis: 1. Bowel paresis. 2. Inability to advance the jejunal tube portion of a gastro-jejunostomy feeding tube. 3. Bladder cancer. Procedures: 1. Feeding tube study. 2. Exchange for an 18 [place]ese, 22 cm GJ tube. 3. Advancement of feeding tube into the 3rd portion of the duodenum. Surgeon(s)/Proceduralists: Isak Sauceda MD Anesthesia: Conscious sedation and 1% lidocaine injected locally. Estimated Blood Loss: none Findings: 1. Persistent stenosis at third portion of the duodenum. 2. Some of the contrast injected into the third portion of the duodenum is seen progressing into the jejunum though the majority of contrast injected refluxes towards the stomach. Specimen(s)/Culture(s) Description: Bilious fluid sent to laboratory. Complications: None Miscellaneous Procedure Notes: Tube feeds may commence as ordered by the oncology service.
[2019-07-10] MEDS ORDERED: TPN* 24 HR with Dextrose 50% Water* 500 ML, Amino Acid Infusion 10%* 850 ML, Sterile Wa... CENTR SCH ×12 (17:00)
[2019-07-11] MEDS: Cefepime 2 GM in Dextrose(*) 2 GM/50 ML BAG IV SCH ×2 (00:32→12:10)
[2019-07-11] MEDS: LORazepam INJ* 2 MG/ML 1 ML VIAL IV PUSH PRN (00:32)
[2019-07-11] MEDS: Metoclopramide IV* 5 MG/ML 2 ML VIAL IV SCH ×4 (03:38→21:12)
[2019-07-11 06:17] LABS: Hematocrit 33 % (42-52); Hemoglobin 11.3 g/dL (14.0-18.0); Mean Corpuscular HGB Conc 34 g/dL (31-36); Mean Corpuscular Hemoglobin 31 pg (27-31); Mean Corpuscular Volume 91 fL (80-94); Mean Platelet Volume 9.3 fL (7.4-10.4); Platelet Count 422 10^3/uL (150-450); Red Blood Count 3.64 10^6 /uL (4.18-5.48); Red Cell Distribution Width 17 % (10-15); White Blood Count 23.7 10^3/uL (3.5-10.8)
[2019-07-11 06:33] LABS: Albumin 3.3 g/dL (3.2-5.2); Albumin/Globulin Ratio 0.6 (1-3); BUN/Creatinine Ratio 39.2 (8-20); Calcium 10.3 mg/dL (8.6-10.3); EGFR African American 61.2 (>60); EGFR Non-African American 50.6 (>60); Globulin 5.1 g/dL (2-4); Magnesium 2.2 mg/dL (1.9-2.7); Phosphorus 4.5 mg/dL (2.5-5.0); Potassium 4.7 mmol/L (3.5-5.0); Total Bilirubin 1.3 mg/dL (0.2-1.0); Total Protein 8.4 g/dL (6.4-8.9)
[2019-07-11 06:55] LABS: ABS Basophils 0.1 10^3/ul (0-0.2); ABS Eosinophils 0.3 10^3/ul (0-0.6); ABS Lymphocytes 0.9 10^3/ul (1.0-4.8); ABS Monocytes 1.4 10^3/ul (0-0.8); ABS Neutrophils 21.1 10^3/ul (1.5-7.7); Eosinophil % 1.1 %; Lymphocyte % 3.9 %
[2019-07-11] MEDS: Morphine INJ* 2 MG/ML 1 ML SYRINGE (TWO MG - NEW SYRINGE VERSION) IV PRN ×3 (07:45→21:16)
[2019-07-11] MEDS: Pantoprazole IV* 40 MG IV SCH ×2 (09:02→21:15)
[2019-07-11] MEDS ORDERED: NS 0.9% 1000 ML** 1,000 ML IV SCH ×2 (10:45)
[2019-07-11] MEDS: TPN* 24 HR with Dextrose 50% Water* 500 ML, Amino Acid Infusion 10%* 850 ML, Sterile Wa... CENTR SCH ×12 (17:23)
[2019-07-12] MEDS: Cefepime(*) 2 GM in NS 0.9% 50 ML* 50 ML IVPB SCH ×2 (00:55→13:29)
[2019-07-12] MEDS: Metoclopramide IV* 5 MG/ML 2 ML VIAL IV SCH ×4 (03:40→21:34)
[2019-07-12] MEDS: LORazepam INJ* 2 MG/ML 1 ML VIAL IV PUSH PRN (03:42)
[2019-07-12 07:00] LABS: Hematocrit 31 % (42-52); Hemoglobin 10.6 g/dL (14.0-18.0); Mean Corpuscular HGB Conc 35 g/dL (31-36); Mean Corpuscular Hemoglobin 31 pg (27-31); Mean Corpuscular Volume 90 fL (80-94); Mean Platelet Volume 9.8 fL (7.4-10.4); Platelet Count 427 10^3/uL (150-450); Red Blood Count 3.39 10^6 /uL (4.18-5.48); Red Cell Distribution Width 16 % (10-15); White Blood Count 23.1 10^3/uL (3.5-10.8)
[2019-07-12 07:17] LABS: BUN/Creatinine Ratio 49.6 (8-20); Calcium 10.1 mg/dL (8.6-10.3); EGFR African American 66.6 (>60); Potassium 4.2 mmol/L (3.5-5.0)
[2019-07-12 08:19] LABS: ABS Basophils 0.1 10^3/ul (0-0.2); ABS Eosinophils 0.3 10^3/ul (0-0.6); ABS Lymphocytes 1.2 10^3/ul (1.0-4.8); ABS Monocytes 1.2 10^3/ul (0-0.8); ABS Neutrophils 20.4 10^3/ul (1.5-7.7); Eosinophil % 1.3 %; Lymphocyte % 5.2 %
[2019-07-12] MEDS: Pantoprazole IV* 40 MG IV SCH ×2 (08:33→21:37)
[2019-07-12] MEDS: Ondansetron INJ* 2 MG/ML VIAL IV PRN (13:26)
[2019-07-12] MEDS: Morphine INJ* 2 MG/ML 1 ML SYRINGE (TWO MG - NEW SYRINGE VERSION) IV PRN (16:06)
[2019-07-12] MEDS: TPN* 24 HR with Dextrose 50% Water* 500 ML, Amino Acid Infusion 10%* 850 ML, Sterile Wa... CENTR SCH ×12 (17:40)
[2019-07-13] MEDS: Cefepime(*) 2 GM in NS 0.9% 50 ML* 50 ML IVPB SCH (00:57)
[2019-07-13] MEDS: Metoclopramide IV* 5 MG/ML 2 ML VIAL IV SCH ×3 (04:12→16:14)
[2019-07-13] MEDS: LORazepam INJ* 2 MG/ML 1 ML VIAL IV PUSH PRN (04:23)
[2019-07-13 04:41] LABS: Hematocrit 31 % (42-52); Hemoglobin 10.5 g/dL (14.0-18.0); Mean Corpuscular HGB Conc 34 g/dL (31-36); Mean Corpuscular Hemoglobin 31 pg (27-31); Mean Corpuscular Volume 90 fL (80-94); Mean Platelet Volume 9.8 fL (7.4-10.4); Platelet Count 458 10^3/uL (150-450); Red Blood Count 3.44 10^6 /uL (4.18-5.48); Red Cell Distribution Width 16 % (10-15); White Blood Count 23.1 10^3/uL (3.5-10.8)
[2019-07-13 04:43] LABS: ABS Basophils 0.1 10^3/ul (0-0.2); ABS Eosinophils 0.3 10^3/ul (0-0.6); ABS Neutrophils 20.8 10^3/ul (1.5-7.7); Eosinophil % 1.1 %; Lymphocyte % 4.5 %
--- NOTE | 2019-07-13 09:12 | PN ---
Progress Note - Progress Note Date of Service: 07/13/19 SOAP: Subjective: [] Doing a little better. TPN has helped and has tolerated tube feeds. Some mild nausea, little BM, some cramping. No fevers. Remains very weak, needs help walking, walked yesterday with assistance. Small BM with pain and feels everything is "cramped up". Acetaminophen (Tylenol Tab*) 650 mg PO Q4H PRN PRN Reason: PAIN - MILD Last Admin: 07/06/19 17:09 Dose: 650 mg Hyoscyamine (Anaspaz Tab*) 0.125 mg PO Q4H PRN PRN Reason: SPASMS Last Admin: 07/02/19 20:35 Dose: 0.125 mg Dextrose 500 ml/ Amino Acids 850 ml/ Sterile Water 150 ml/Fat Emulsion Intravenous 250 ml/ Potassium Chloride 20 meq/Potassium Phosphate 15 mmole/ Calcium Gluconate 5 meq/Magnesium Sulfate 10 meq/Multivitamins 10 ml/ Trace Metals 1 ml/ Sodium Acetate 50 meq/ Nutrition (Parenteral) 1,814.215 mls @ 75.592 mls/hr [facility] 1700 [facility]; Protocol Last Admin: 07/12/19 17:40 Dose: 75.592 mls/hr Cefepime HCl 2 gm/ Sodium (Chloride) 50 mls @ 100 mls/hr IVPB Q12H [facility] Last Admin: 07/13/19 00:57 Dose: 100 mls/hr Lorazepam (Ativan Inj*) 0.5 mg IV PUSH Q4H PRN PRN Reason: ANXIETY Last Admin: 07/13/19 04:23 Dose: 0.5 mg Metoclopramide HCl (Reglan Iv*) 10 mg IV 0300,0900,1500,2100 [facility] Last Admin: 07/13/19 04:12 Dose: 10 mg Miscellaneous (Ativan Pyxis Booth) 1 ea N/A .ATIVAN IV BOOTH PRN PRN Reason: PYXIS BOOTH Morphine Sulfate (Morphine Inj (Syringe))*) 2 mg IV Q4H PRN PRN Reason: PAIN - MODERATE Last Admin: 07/12/19 16:06 Dose: 2 mg Ondansetron HCl (Zofran Inj*) 8 mg IV Q8H PRN PRN Reason: NAUSEA Last Admin: 07/12/19 13:26 Dose: 8 mg Pantoprazole Sodium (Protonix Iv*) 40 mg IV BID [facility] Last Admin: 07/12/19 21:37 Dose: 40 mg Objective: [] Vital Signs Temp Pulse Resp BP Pulse Ox 97.3 F 116 17 144/99 98 07/13/19 07:30 07/13/19 07:30 07/13/19 07:30 07/13/19 07:30 07/13/19 07:30 ill appearing and thin HEENT: OM dry, pale port in use RRR S12, tachy CTA +BS, still abd, not distended, +BS G-tube with gastric contents, no TF J-tube feeding. WBC 23,000 CMP stable [Assessment: []59 yo male with metastatic adenocarcinoma of bladder s/p 12 cycles of mFOLFOX with plan to proceed with Atezoluzimab, however presented to the office on with severe N/V and abd. pain and was found to have ARF 2/2 hypovolemia and imaging concerning for gastric outlet obstruction. Work-up has included an EGD which revealed marked esophagitis, gastritis, and a small duodenal ulcer. No clear mechanical obstruction on CT or EGD but gastric emptying study confirmed gastroparesis, presumed second to progressive peritoneal disease. Now has G/J tube and tolerating TF at 40 cc per hr. Discussed prognosis is poor and options are continued agressive therpy with goal of Atezoluzimab 72 hrs after discharge. May or may not work. Could make him worse, extend time in hospital. Other option is palliative care and hospice , survival measured in weeks. he wants to try and get home first and then decide. Plan: []1. Gastric outlet obstruction - Stay NPO - Continue IV PPI - Increase TF to 50 cc/hr 2. FEN: - TPN to stop after current bag assuming TF tolerated. - Cr now back to near baseline - Constipation, try suppository 4. Leukocytosis. Likely second to malignancy - BC negative, stop antiboitics. 3. Bladder cancer. Therapy on discharge as noted above. 4. Disp. Home, need PT/OP 4. DNR/DNI
[2019-07-13] MEDS: Pantoprazole IV* 40 MG IV SCH ×2 (09:13→20:33)
[2019-07-13] MEDS: Ondansetron INJ* 2 MG/ML VIAL IV PRN (10:49)
[2019-07-13] MEDS: Morphine INJ* 2 MG/ML 1 ML SYRINGE (TWO MG - NEW SYRINGE VERSION) IV PRN ×2 (16:14→20:38)
[2019-07-14] MEDS: Metoclopramide IV* 5 MG/ML 2 ML VIAL IV SCH ×3 (00:59→17:03)
[2019-07-14] MEDS: LORazepam INJ* 2 MG/ML 1 ML VIAL IV PUSH PRN (01:05)
[2019-07-14 06:26] LABS: ABS Eosinophils 0.2 10^3/ul (0-0.6); ABS Lymphocytes 1.2 10^3/ul (1.0-4.8); ABS Neutrophils 17.3 10^3/ul (1.5-7.7); Eosinophil % 1.2 %; Hematocrit 33 % (42-52); Hemoglobin 10.7 g/dL (14.0-18.0); Lymphocyte % 6.1 %; Mean Corpuscular HGB Conc 32 g/dL (31-36); Mean Corpuscular Hemoglobin 29 pg (27-31); Mean Corpuscular Volume 90 fL (80-94); Mean Platelet Volume 9.9 fL (7.4-10.4); Platelet Count 488 10^3/uL (150-450); Red Blood Count 3.66 10^6 /uL (4.18-5.48); Red Cell Distribution Width 17 % (10-15); White Blood Count 19.8 10^3/uL (3.5-10.8)
--- NOTE | 2019-07-14 07:07 | PN ---
Progress Note - Progress Note Date of Service: 07/13/19 Note: GI fu; late entry; pt seen and examined at 12;30 pm on 07-12 doing ok, denies abd pain now, G tube hooked to suction and this has relieved much pain/pressure; so far, 300cc TF colored liquid from G tube; TF at 40cc/hr ; VS; 97.4, 145/95 nad, alert +bs, soft, nt, PEG looks good G tube with J extension; gets abd pain with gastric distention; G tube not draining to gravity; once hooked to suction, increased output; concerned about TF refluxing or J tube flipped back into stomach; need to monitor; GI to follow Tom Richmond MD
[2019-07-14] MEDS: Pantoprazole IV* 40 MG IV SCH ×2 (08:51→23:15)
--- NOTE | 2019-07-14 11:35 | PN ---
Progress Note - Progress Note Date of Service: 07/14/19 SOAP: Subjective: [Doing ok. Vomited yesterday after tube feeding rate increased to 50 ml/h. G- tube is to low wall suction as it gets clogged freq when draining to gravity. Feels good now. No abd pain. Formed BM yesterday after suppository. Motivated to get home.] Objective: [ Vital Signs: Temp Pulse Resp BP Pulse Ox 97.5 F 122 18 139/87 99 07/14/19 11:12 07/14/19 11:12 07/14/19 11:12 07/14/19 11:12 07/14/19 11:12 Acetaminophen (Tylenol Tab*) 650 mg PO Q4H PRN PRN Reason: PAIN - MILD Last Admin: 07/06/19 17:09 Dose: 650 mg Bisacodyl (Dulcolax Supp*) 10 mg TX DAILY PRN PRN Reason: DIARRHEA Heparin Sodium (Porcine) (Heparin Flush Port (Ivad)) 5 ml FLUSH DAILY [facility]; Protocol Last Admin: 07/14/19 08:48 Dose: Not Given Hyoscyamine (Anaspaz Tab*) 0.125 mg PO Q4H PRN PRN Reason: SPASMS Last Admin: 07/02/19 20:35 Dose: 0.125 mg Metoclopramide HCl (Reglan Iv*) 10 mg IV Q8H [facility] Last Admin: 07/14/19 08:54 Dose: 10 mg Miscellaneous (Ativan Pyxis Booth) 1 ea N/A .ATIVAN IV BOOTH PRN PRN Reason: PYXIS BOOTH Ondansetron HCl (Zofran Inj*) 8 mg IV Q8H PRN PRN Reason: NAUSEA Last Admin: 07/13/19 10:49 Dose: 8 mg Pantoprazole Sodium (Protonix Iv*) 40 mg IV BID [facility] Last Admin: 07/14/19 08:51 Dose: 40 mg Laboratory Results - last 24 hr 07/13/19 07/14/19 07/14/19 21:54 06:13 09:47 WBC 19.8 H RBC 3.66 L Hgb 10.7 L Hct 33 L MCV 90 MCH 29 MCHC 32 RDW 17 H Plt Count 488 H MPV 9.9 Neut % (Auto) 87.5 Lymph % (Auto) 6.1 Page % (Auto) 5.0 Eos % (Auto) 1.2 Baso % (Auto) 0.2 Absolute Neuts (auto) 17.3 H Absolute Lymphs (auto) 1.2 Absolute Monos (auto) 1.0 H Absolute Eos (auto) 0.2 Absolute Basos (auto) 0.0 Absolute Nucleated RBC 0.0 Nucleated RBC % 0.0 POC Glucose (mg/dL) 107 H 99 Exam Gen: chronically ill appearing 59 yo male in NAD HEENT: MMM, R eye droop (stable) CV: RRR, no m/r/g Resp: CTA Abd: G/J tube in place with cont tube feeding and Gtube to suction with pale yellow drainage Ext: no edema] Assessment: 59 yo male with metastatic adenocarcinoma of bladder s/p 12 cycles of mFOLFOX with plan to proceed with Atezoluzimab, however presented to the office on with severe N/V and abd. pain and was found to have ARF 2/2 hypovolemia and imaging concerning for gastric outlet obstruction. Work-up has included an EGD which revealed marked esophagitis, gastritis, and a small duodenal ulcer. No clear mechanical obstruction on CT or EGD but gastric emptying study confirmed gastroparesis, presumed secondary to progressive peritoneal disease. Now has G/ J tube and tolerating TF at 40 cc per hr. Plan: []1. Gastric outlet obstruction - G/J tube in place - Continue IV PPI - sips of water ok, cont Gtube to low wall suction 2. FEN: - TPN stopped - will trial another increase TF to 50 cc/hr - Cr now back to near baseline - Constipation improved 4. Leukocytosis. Likely second to malignancy - BC negative, urine cx grew small volumes of EColi and MRSA - more likely represent colonization than infection 3. Bladder cancer. - atezolizumab v hospice at discharge - pt will defer this decision to after dc 4. DNR/DNI Dispo: transition home, requested home services to be arranged by CM. Will need continuous feedings at home.
[2019-07-14] MEDS ORDERED: Morphine INJ* 2 MG/ML 1 ML SYRINGE (TWO MG - NEW SYRINGE VERSION) ONE (18:31)
[2019-07-14] MEDS ORDERED: Morphine INJ* 2 MG/ML 1 ML SYRINGE (TWO MG - NEW SYRINGE VERSION) IV PRN (18:32)
[2019-07-14] MEDS: Morphine INJ* 2 MG/ML 1 ML SYRINGE (TWO MG - NEW SYRINGE VERSION) IV PRN (18:32)
[2019-07-14] MEDS ORDERED: LORazepam INJ* 2 MG/ML 1 ML VIAL IV PUSH PRN (22:54)
[2019-07-15] MEDS: Metoclopramide IV* 5 MG/ML 2 ML VIAL IV SCH ×2 (00:37→08:25)
[2019-07-15 06:54] LABS: Calcium 11.4 mg/dL (8.6-10.3); EGFR African American 31.6 (>60); EGFR Non-African American 26.1 (>60); Magnesium 2.2 mg/dL (1.9-2.7); Potassium 4.1 mmol/L (3.5-5.0)
[2019-07-15 07:12] LABS: BUN/Creatinine Ratio 38.4 (8-20)
[2019-07-15] MEDS ORDERED: NS 0.9% 1000 ML** 1,000 ML IV SCH (07:45)
[2019-07-15] MEDS: Pantoprazole IV* 40 MG IV SCH (08:27)
--- NOTE | 2019-07-15 10:34 | PN ---
Progress Note - Progress Note Date of Service: 07/15/19 SOAP: Subjective: [] Objective: [] Assessment: [] Plan: []
[2019-07-15 11:24] VITALS: BP 128/92
--- NOTE | 2019-07-15 12:51 | DS ---
CC: Dr. Jamel Garces; Dr. Mejias; Dr. Gomez* DISCHARGE SUMMARY: DATE OF ADMISSION: 06/30/19 DATE OF DISCHARGE: 07/15/19 PRIMARY CARE PROVIDER: Dr. Jamel Garces. CONSULTING APPAREL EMBROIDERY DIGITIZER: Dr. Laurel Mejias. INTERVENTIONAL RADIOLOGIST: Dr. Sauceda. PRIMARY ONCOLOGIST AND ATTENDING PHYSICIAN: Dr. Toni Gomez* (dictated by KIRK Bardales). DISCHARGING PROVIDER: KIRK Bardales. PRIMARY DISCHARGE DIAGNOSES: 1. Severe gastroparesis, presumed secondary to advanced peritoneal disease from metastatic bladder adenocarcinoma causing a functional gastric outlet obstruction. 2. Status post placement of G/J tube, required for 100% of nutrition. 3. Acute kidney injury secondary to hypovolemia. 4. Leukocytosis, likely paraneoplastic - evaluated for sources of infection. DISCHARGE MEDICATIONS: 1. Clonazepam 0.5 mg via J tube as needed for anxiety. 2. Eszopiclone 3 mg via J tube at bedtime as needed for insomnia. HOSPITAL IMAGIN. CT abdomen and pelvis, 06/30/19, shows a markedly dilated stomach and gastric antrum, possibility of gastric outlet obstruction should be considered. 2. Abdominal x-ray, 07/01/19, shows a nonobstructive small bowel gas pattern, suspected gastric outlet obstruction, noted on CT, is not visualized on x-ray. 3. Chest x-ray, 07/02/19, confirms placement of a G tube. 4. Upper GI series and small bowel followthrough shows no appreciable mechanical gastric outlet obstruction or small bowel obstruction. Oral contrast is still noted within the stomach when some contrast reaches the large bowel at 2-1/2 hours later. There is a filling defect in the second stage of the duodenum which may correspond with an ulcerated lesion seen on endoscopy. 5. Gastric emptying study, 07/07/19, shows findings consistent with gastroparesis, there is essentially no radiotracer beyond the gastric fundus after 90 minutes of imaging. HOSPITAL COURSE: This is a 59-year-old gentleman with metastatic bladder adenocarcinoma, under the care of Dr. Gomez, who was treated with 12 cycles of FOLFOX with plans to transition to immunotherapy, who presented to the oncology clinic with intractable nausea and vomiting. CT imaging revealed what was most likely a gastric outlet obstruction and the patient was subsequently admitted to the hospital. He underwent EGD on his first day of hospitalization, which was completed by Dr. Mejias, showed gastritis, maybe a small duodenal ulcer but no evidence of mechanical obstruction or area of stenosis. His symptoms were relieved with decompression of his stomach via nasogastric tube. Attempts to wean from the nasogastric tube were unsuccessful as he began to vomit again shortly after resuming p.o. intake. He subsequently underwent an upper GI series with a small bowel followthrough, which again showed no mechanical obstruction, but delayed emptying of the stomach. Surgery was asked for consultation, who recommended a gastric emptying study, which was later completed and confirmed the suspicion of severe gastroparesis. The mechanism of severe gastroparesis seemed most likely due to significant peritoneal spread of his bladder carcinoma causing paralyzation of the stomach and not allowing for adequate peristalsis. The patient subsequently underwent an attempt for placement of a G/J tube with Interventional Radiology. Unfortunately, the J limb of the tube was unsuccessful and curled back into the stomach on initial attempt. There was a subsequent attempt by outside sales representative, Dr. Richmond to manipulate that arm of the tube endoscopically which again was not successful. Revision with Interventional Radiology was eventually successful on 07/08/19 with adequate placement of a shorter G/J tube. G tube was subsequently placed as a venting tube to allow for drainage of gastric juices and avoid vomiting and tube feedings were initiated via the J limb. Tube feedings were started very slow at just 10 mL an hour and titrated up to 60 per hour at the time of discharge. An extensive discussion was had during this hospitalization as to the appropriate direction for treatment. He clearly has had significant disease progression, and his nutritional status being tenuous in addition to marked leukocytosis are both poor prognostic indicators. Recommendations for treatment would be to proceed with PDL1 inhibitor atezolizumab or of course other option would be to pursue fairly palliative measures and transition to hospice. The patient was unable to make a decision during this hospitalization , will instead be transitioned to home and reevaluate treatment options shortly after discharge. DISPOSITION AND FOLLOWUP PLAN: The patient is being discharged to home where he does live by himself, but has adequate support from both his girlfriend and his brother who lives nearby. He does require continuous tube feedings currently at a rate of 60 mL per hour with Jevity with a goal of 65 per hour with frequent water flushes. He has a venting G tube in place currently, draining to gravity with availability of suction if he becomes nauseated or the tube becomes clogged. He can continue to drink sips of clear liquids but advised against large volumes as this may cause him to vomit. The patient will follow up with Dr. Gomez via telemedicine visit on 07/17/19 and further discuss directions of care at that point in time. The patient is being discharged in stable condition. KIRK BARDALES [id number]/[facility] #: [id number] MARIBEL
== END 2019-07-15 14:37 | disposition home or self-care (01) | DRG 380 ==
LOC: CHOA 10:52 → SSU 17:14
PROVIDERS: ADMIT Internal Medicine Hematology & Oncology; ATTEND Internal Medicine Hematology & Oncology
PROC: 0DB68ZX Excision of Stomach, Via Natural or Artificial Opening Endoscopic, Diagnostic (ICD-10-PCS; 2019-07-01)
PROC: 0DB98ZX Excision of Duodenum, Via Natural or Artificial Opening Endoscopic, Diagnostic (ICD-10-PCS; 2019-07-01)
PROC: 0D9670Z Drainage of Stomach with Drainage Device, Via Natural or Artificial Opening (ICD-10-PCS; 2019-07-04)
PROC: 0DHA3UZ Insertion of Feeding Device into Jejunum, Percutaneous Approach (ICD-10-PCS; principal; 2019-07-08)
PROC: 0DJ08ZZ Inspection of Upper Intestinal Tract, Via Natural or Artificial Opening Endoscopic (ICD-10-PCS; 2019-07-09)
DX: K31.1 Adult hypertrophic pyloric stenosis (principal); E43 Unspecified severe protein-calorie malnutrition; C79.11 Secondary malignant neoplasm of bladder; C78.6 Secondary malignant neoplasm of retroperitoneum and peritoneum; N17.9 Acute kidney failure, unspecified; K94.23 Gastrostomy malfunction; K31.84 Gastroparesis; Z66 Do not resuscitate; F43.22 Adjustment disorder with anxiety; J44.9 Chronic obstructive pulmonary disease, unspecified; F32.9 Major depressive disorder, single episode, unspecified; M10.9 Gout, unspecified; E78.5 Hyperlipidemia, unspecified; I10 Essential (primary) hypertension; F17.210 Nicotine dependence, cigarettes, uncomplicated; E86.1 Hypovolemia; K21.0 Gastro-esophageal reflux disease with esophagitis; K29.70 Gastritis, unspecified, without bleeding; K26.9 Duodenal ulcer, unspecified as acute or chronic, without hemorrhage or perforation; R09.02 Hypoxemia; D72.829 Elevated white blood cell count, unspecified; B96.20 Unspecified Escherichia coli [E. coli] as the cause of diseases classified elsewhere; B95.62 Methicillin resistant Staphylococcus aureus infection as the cause of diseases classified elsewhere; C80.1 Malignant (primary) neoplasm, unspecified; Z91.041 Radiographic dye allergy status; Z91.013 Allergy to seafood; Z85.47 Personal history of malignant neoplasm of testis; Z92.3 Personal history of irradiation; Z92.21 Personal history of antineoplastic chemotherapy; Z53.09 Procedure and treatment not carried out because of other contraindication; G47.00 Insomnia, unspecified; Y83.8 Other surgical procedures as the cause of abnormal reaction of the patient, or of later complication, without mention of misadventure at the time of the procedure; Y92.239 Unspecified place in hospital as the place of occurrence of the external cause; Z68.20 Body mass index [BMI] 20.0-20.9, adult
CPT/HCPCS: 36415; 49440; 49446; 49452; 71045; 74018; 74246; 74248; 78264; 80048; 80053; 81003; 81015; 82465; 83735; 84100; 84134; 84478; 85025; 85049; 85610; 87040; 87077; 87086; 87186; 88305; 88312; 88342; 93005; 96361; 96374; 96375; 99156; 99157; 99213; 99223; 99232; 99233; 99239; A9270-GY; A9541; C1887; C1894; G0463; J0690; J0692; J0780; J1610; J1642; J1650; J2060; J2250; J2270; J2405; J2765; J3010; J3475; J3480; J3490; J9022